=== PATIENT | male | born 1960 | race Hispanic/Latino ===

== ENCOUNTER 2024-04-20 09:04 | Inpatient (IN) | payer SELFPAY ==
[2024-04-20] VITALS (50 sets, daily range): BP systolic 115–166; BP diastolic 67–119; PULSE 81–135; RESP 8–46; TEMP 98.1–98.7; O2SAT 94–96
[~2024-04-20] VITALS: Ht 177.8 cm; Wt 92.1 kg
[2024-04-20] MEDS: HEParin 5,000 UNIT VIAL IV ONE ×2 (09:15→18:54)
[2024-04-20] MEDS ORDERED: IOHEXOL-350 75 ML VIAL IV ONE (09:17)
[2024-04-20] MEDS ORDERED: LIDOCAINE HCL 400MG/20ML VIAL ONE (09:17)
[2024-04-20] MEDS ORDERED: HEParin-NS 1,000 UNIT/500 ML 1,000 ML IV ONE (09:18)
[2024-04-20] MEDS ORDERED: NITROGLYCERIN 50MG VIAL ONE (09:18)
[2024-04-20] MEDS: TICAGrelor 90 MG TABLET PO ONE (09:20)
--- NOTE | 2024-04-20 09:21 | ERN ---
ED Note History of Present Illness Stated Complaint: CP Chief Complaint: Chest Pain Time Seen by MD: 09:10 Dictation: 64-year-old male with a history of HTN presents to the ED for evaluation of worsening chest pain onset 4 hours ago. Patient denies any shortness a breath o r other associated symptoms at this time. No cardiac history. Allergies: Coded Allergies: No Known Drug Allergies (Unverified Allergy, Unknown, 04/20/24) Past Medical History Past Medical History: Hypertension Surgical History: None Review of System Dictation Constitutional: Negative for fever,chills, and weight loss Eyes: Negative for injury, pain,redness, and discharge ENT: Negative for injury,pain or swelling Cardiovascular: Positive for chest pain negative for palpitations, and edema Respiratory: Negative for shortness of breath, cough, and wheezing, Abdomen/GI: Negative for abdominal pain, nausea, vomiting, diarrhea, and constipation Back: Negative for injury and pain : Negative for injury, bleeding and discharge MS/Extremity: Negative for injury and deformity Skin: Negative for rash, and discoloration Neuro: Negative for headache, weakness, numbness, tingling, and seizure Psych: Negative for suicide ideation, homicidal ideation, and hallucinations Initial Vital Sign VS Vital Signs Date Time Temp Pulse Resp B/P (MAP) Pulse Ox O2 Delivery O2 Flow Rate FiO2 04/20/24 09:05 97.9 113 20 198/134 98 0 Physical Exam Dictation General: awake, alert, patient is uncomfortable Head/Face: Normocephalic, atraumatic Eyes: PERRL, EOMI, vision at baseline ENT: oral cavity clear, TMs clear, no signs of infection Neck: Trachea midline, supple, no nuchal rigidity Cardiovascular: Tachycardia, No MRGs, no JVD Respiratory: CTAB, no respiratory distress, No rales or wheezes Abdomen: Soft, non-tender, non-distended, normal bowel sounds, no guarding or rebound. Skin: Warm, dry, normal turgor, no rash MS/Extremity: Pulses equal, no cyanosis, neurovascular intact, FROM Neuro: COAx4, GCS 15, strength 5/5, CN 2-12 intact, normal cerebellar exam, normal gait, Psych: Normal behavior, mood, and affect normal Results (Laboratory/Radiology) Laboratory/Radiology Laboratory Tests Test 04/20/24 09:17 White Blood Count 8.9 K/uL (4.8-10.8) Red Blood Count 5.28 MIL/uL (4.50-6.20) Hemoglobin 17.1 g/dL (14.0-18.0) Hematocrit 49.3 % (42-54) Mean Corpuscular Volume 93.4 fL (79-99) Mean Corpuscular Hemoglobin 32.4 pg (27.0-33.0) Mean Corpuscular Hemoglobin Concent 34.7 g/dL (32.0-36.0) Red Cell Distribution Width 12.9 % (11.0-15.5) Platelet Count 315 K/uL (130-400) Mean Platelet Volume 10.2 fL (7.5-10.5) Immature Granulocyte % (Auto) 0.8 % (0-1) Neutrophils (%) (Auto) 57.2 % (40.0-77.0) Lymphocytes (%) (Auto) 27.4 % (21.0-51.0) Monocytes (%) (Auto) 12.8 % (3.0-13.0) Eosinophils (%) (Auto) 1.6 % (0.0-8.0) Basophils (%) (Auto) 0.2 % (0.0-5.0) Neutrophils # (Auto) 5.1 K/uL (1.8-7.7) Lymphocytes # (Auto) 2.4 K/uL (1.0-4.8) Monocytes # (Auto) 1.1 K/uL (0.1-1.0) H Eosinophils # (Auto) 0.14 K/uL (0.00-0.70) Basophils # (Auto) 0.02 K/uL (0.00-0.20) Absolute Immature Granulocyte (auto 0.07 K/uL (0-1) Nucleated Red Blood Cells 0.0 % (0.0-0.19) Sodium Level 139 mmol/L (136-145) Potassium Level 3.9 mmol/L (3.5-5.1) Chloride Level 101 mmol/L (101-111) Carbon Dioxide Level 29 mmol/L (21-32) Blood Urea Nitrogen 21 mg/dL (7-18) H Creatinine 1.7 mg/dL (0.5-1.3) H Glomerular Filtration Rate Calc 45 mL/min (>90) Random Glucose 159 mg/dL (70-105) H Total Calcium 9.3 mg/dL (8.5-10.1) Total Creatine Kinase 153 U/L (21-232) Troponin I 0.07 ng/mL (0.00-0.05) H B-Type Natriuretic Peptide 61 pg/mL (0-100) Labs Reviewed?: Yes EKG Comment: EKG 04/20/2024 time 9:00 a.m. ventricular rate 106, QRS D 97, QT 320. Atrial fibrillation, anterolateral infarct, acute, ST elevation, consider inferior injury. Abnormal EKG. Anterior lateral STEMI ED Course ED Course Orders Procedure Category Date Status Time Vital Signs Per CPOE 04/20/24 Transmitted Routine 09:10 B-Type Natriuretic LAB 04/20/24 Complete Peptide 09:10 Chest 1vw RAD 04/20/24 Logged 09:10 12 Lead Ekg Tracing- EKG 04/20/24 Complete Technical 09:10 Oxygen By Nc/Pulse Ox CPOE 04/20/24 Transmitted 09:10 Maintain Iv CPOE 04/20/24 Transmitted 09:10 Iv Insertion CPOE 04/20/24 Transmitted 09:10 Cardiac Monitoring CPOE 04/20/24 Transmitted 09:10 Pulse Oximetry With CPOE 04/20/24 Transmitted Vs And Prn 09:10 Cbc With Differential LAB 04/20/24 Complete 09:10 Activity: Br W/Brp CPOE 04/20/24 Transmitted With Assist 09:10 Creatine Kinase, Total LAB 04/20/24 Complete 09:10 Urinalysis Profile LAB 04/20/24 Logged 09:10 Troponin Poc Order LAB 04/20/24 Complete Only 09:10 Bedside Troponin-I LAB.ER 04/20/24 In Process (Poc) 09:10 Basic Metabolic Panel LAB 04/20/24 Complete 09:10 Heparin 5,000 Unit PHA 04/20/24 Complete Vial (Heparin 5,000 U 09:14 Heparin 25,000 PHA 04/20/24 Complete Units/250ml D5w 09:14 Aspirin 325mg Tab PHA 04/20/24 Complete (Aspirin 325mg Tab) 09:30 Lidocaine Hcl PHA 04/20/24 Complete 400mg/20ml (Lidocaine 09:17 Iohexol (Omnipaque) PHA 04/20/24 Complete 09:17 Heparin-Ns 1,000 PHA 04/20/24 Complete Unit/500 Ml 09:18 Nitroglycerin 50mg PHA 04/20/24 Complete Vial (Tridil 50mg/10m 09:18 Ticagrelor (Brilinta) PHA 04/20/24 Complete 09:30 Ticagrelor (Brilinta) PHA 04/20/24 Complete 09:20 Butter Liquefier Procedure CATH 04/20/24 In Process Request 09:25 Heparin 5,000 Unit PHA 04/20/24 Complete Vial (Heparin 5,000 U 09:30 Heparin 25,000 PHA 04/20/24 In Process Units/250ml D5w 09:30 Ticagrelor (Brilinta) PHA 04/20/24 Complete 09:30 Heparin 10,000 PHA 04/20/24 Complete Unit/10ml (Heparin 09:26 Aspirin 325mg Ec Tab PHA 04/20/24 Complete (Aspirin 325mg Ec T 09:26 Verapamil Hcl PHA 04/20/24 Complete (Calan/Isoptin) 09:29 Fentanyl Citrate Pf PHA 04/20/24 Complete 0.05 Mg/Ml (Fentanyl 09:31 Midazolam Hcl (Versed) PHA 04/20/24 Complete 09:31 Metoprolol Tartrate PHA 04/20/24 Complete (Lopressor) 09:38 Eptifibatide PHA 04/20/24 Complete (Integrilin) 09:52 Metoprolol Tartrate PHA 04/20/24 Complete (Lopressor) 09:53 Eptifibatide PHA 04/20/24 Complete (Integrilin) 09:58 Initiate EVELYNE 04/20/24 In Process Hyperglycemia Protoco 10:08 Insulin Regular, PHA 04/20/24 In Process Human 3ml (Humulin R 11:30 Initiate Hypoglycemia EVELYNE 04/20/24 In Process Protocol 10:08 Dextrose 50%-Water PHA 04/20/24 In Process (D50w) 10:30 Glucagon 1mg Kit PHA 04/20/24 In Process (Glucagon 1mg Kit) 10:30 Magnesium 2gm Premix PHA 04/20/24 In Process 50ml (Magnesium 2gm 10:30 Ammonia LAB 04/21/24 Verified 04:00 B-Type Natriuretic LAB 04/21/24 Verified Peptide 04:00 Cbc With Differential LAB 04/21/24 Verified 04:00 Comprehensive LAB 04/21/24 Verified Metabolic Panel 04:00 Creatine Kinase, Total LAB 04/21/24 Verified 04:00 D-Dimer LAB 04/20/24 In Process 10:08 Hemoglobin A1c LAB 04/21/24 Verified 04:00 Hepatic Function Panel LAB 04/21/24 Verified 04:00 Influenza Type A & B, LAB 04/20/24 Logged Rapid 10:08 Lactic Acid LAB 04/21/24 Verified 04:00 Magnesium LAB 04/21/24 Verified 02:00 Procalcitonin LAB 04/21/24 Verified 04:00 Troponin I High LAB 04/21/24 Verified Sensitivity 04:00 Heparin-Ns 1,000 PHA 04/20/24 Complete Unit/500 Ml 10:08 Vital Signs(Adult CPOE 04/20/24 Transmitted Hospitalist) 10:09 Daily Weights CPOE 04/20/24 Transmitted 10:09 I&O Q Shift CPOE 04/20/24 Transmitted 10:09 Fever: Blood Cx X 2 CPOE 04/20/24 Transmitted 10:09 Diphenhydramine Hcl PHA 04/20/24 In Process (Benadryl Cap) 10:30 Acetaminophen 325 Tab PHA 04/20/24 In Process (Tylenol 325mg Tab 10:30 Acetaminophen 325 Tab PHA 04/20/24 In Process (Tylenol 325mg Tab 10:30 Ondansetron 4mg Inj PHA 04/20/24 In Process (Zofran 4mg Inj) 10:30 Zolpidem Tartrate 5 PHA 04/20/24 In Process Mg Tab (Ambien) 10:30 Mag/Alum/Simeth 30ml PHA 04/20/24 In Process (Maalox Plus 30ml) 10:30 Lactulose 20 Gm/30 Ml PHA 04/20/24 In Process Udcup (Constulose 10:30 Nitroglycerin 0.4mg PHA 04/20/24 In Process Sl Tab (Nitrostat) 10:30 Guaifenesin-Dm PHA 04/20/24 In Process 200/20mg 10ml 10:30 Ipratropium 0.5 PHA 04/20/24 In Process Mg/2.5 Ml Inh 12:00 Famotidine 20mg Vial PHA 04/20/24 Complete (Pepcid 20mg Vial) 10:30 Albuterol 0.083% PHA 04/20/24 In Process 2.5mg/3ml (Proventil 10:30 Nurse To Enter Home CPOE 04/20/24 Transmitted Medication 10:09 Vital Signs(Adult CPOE 04/20/24 Transmitted Hospitalist) 10:09 Nurse To Enter Home CPOE 04/20/24 Transmitted Medication 10:09 Admit Orders ADM 04/20/24 Transmitted 10:09 Eptifibatide PHA 04/20/24 Complete 75mg/100ml Bottle 10:16 Vital Signs(Adult CPOE 04/20/24 Transmitted Hospitalist) 10:14 Nurse To Enter Home CPOE 04/20/24 Transmitted Medication 10:14 Activity: Br W/Brp CPOE 04/20/24 Transmitted With Assist 10:14 Urinalysis LAB 04/20/24 Logged W/Microscopic 10:14 Nitroglycerin PHA 04/20/24 Complete 50mg/D5w 250ml 10:25 Metoprolol Tartrate PHA 04/20/24 Complete (Lopressor) 10:28 Butter Liquefier Vital Signs CPOE 04/20/24 Transmitted 11:00 Intake/Output Butter Liquefier CPOE 04/20/24 Transmitted 11:00 Physician CPOE 04/20/24 Transmitted Notification Cathlab 11:00 Integrilin 75mg/100mls PHA 04/20/24 Transmitted 11:00 Ns 1000mls PHA 04/20/24 Transmitted 11:00 Heart Healthy Diet DIET 04/20/24 Transmitted Lunch Carvedilol 6.25mg Tab PHA 04/20/24 Transmitted (Coreg 6.25mg) 21:00 Aspirin 81mg Chew Tab PHA 04/21/24 Transmitted (Aspirin 81mg Chew 09:00 Metoprolol Tartrate PHA 04/20/24 Transmitted (Lopressor) 11:00 Ticagrelor (Brilinta) PHA 04/20/24 Transmitted 21:00 Atorvastatin 40mg PHA 04/20/24 Transmitted (Lipitor 40mg) 21:00 Echo 2-D Complete ECHO 04/20/24 Logged 11:00 Nitroglycerin PHA 04/20/24 Transmitted 50mg/D5w 250ml 11:00 Radial Band CPOE 04/20/24 Transmitted Remvl-Intervention 11:00 Vital Signs Date Time Temp Pulse Resp B/P (MAP) Pulse Ox O2 Delivery O2 Flow Rate FiO2 04/20/24 09:05 97.9 113 20 198/134 98 0 HEART Score Response (Comments) Value History: Low suspicion (0) 0 EKG: Significant ST depression 2 Age: 45-65yrs (+1) 1 Risk Factors: 1-2 risk factors (+1) 1 Initial Troponin: Normal limit (0) 0 HEART Score Risk: Mod Risk for MACE (4-6) Total 4 Medical Decision Making MDM MDM: Differential diagnosis:WA, STEMI, ACS 0914- Dr. Bruno, will take patient to the Cathlab 0925- Hospitalist consult, accepts patient for admission Rationale: Tests considered and ordered secondary to shared decision making include: labs, ECG and radiology Risk of complication and/or morbidity or mortality of patient management: None Medications-Per medication reconciliation Need for hospitalization: Patient does meet criteria for hospitalization. Need for emergency major/minor surgery: Yes There are no social concerns with this patient. I independently interpreted the test that were performed, results were reviewed by me and considered findings on radiology if ordered. Medical management and examination interpretation discussions were had by me with other qualified healthcare professionals as indicated for the patient's care. Critical Care Note Critical Time: other (Total critical care time was 33 minutes. Excluding time for procedures. Management of critically ill patient with concern for acute decompensation. Management included interpretation of laboratory values and imaging, hemodynamics, time for consultation with consultants and admitting physician.) DX & DISP Disposition: Inpatient Decision to Admit Date: Apr 20, 2024 Decision to Admit Time: 09:24 Departure Impression: Primary Impression: STEMI (ST elevation myocardial infarction) Additional Impressions: Acute coronary syndrome, Anterior lateral STEMI Condition: Stable Referrals: CARISSA LIVE (PCP) PHANI CARVER MD Apr 20, 2024 09:21
--- NOTE | 2024-04-20 09:21 | NUR ---
PT TRANPORTED TO SIGNAL TESTER AT THIS TIME ACCOMPANIED BY CATH TEAM
--- NOTE | 2024-04-20 09:23 | NUR ---
TO CARE MANAGEMENT ASSOCIATE AT THIS TIME
[2024-04-20] MEDS ORDERED: ASPIRIN 325MG EC TAB PO ONE (09:26)
[2024-04-20] MEDS ORDERED: HEParin 10,000 UNIT/10ML (1,000 UNIT/ML) VIAL ONE (09:26)
[2024-04-20] MEDS: HEParin 25,000 UNITS/250ML D5W 250 ML IV ONE (09:27)
[2024-04-20] MEDS: HEParin 5,000 UNIT VIAL ONE (09:27)
[2024-04-20] MEDS: TICAGrelor 90 MG TABLET ONE (09:27)
--- NOTE | 2024-04-20 09:27 | NUR ---
PER SALES ROUTE DRIVER NURSE, NOT TO START HEPARIN DRIP PATIENT WAS ALREADY BEING TRANSFERED TO SALES ROUTE DRIVER. TO BE STARTED BY SALES ROUTE DRIVER TEAM.
[2024-04-20] MEDS ORDERED: VERAPAMIL HCL 2.5 MG/ML VIAL ONE (09:29)
[2024-04-20] MEDS ORDERED: TICAGrelor 90 MG TABLET PO SCH (09:30)
[2024-04-20] MEDS: ASPIRIN 325MG TAB PO ONE (09:30)
[2024-04-20] MEDS ORDERED: FENTanyl CITRate PF 50 MCG/1 ML 2ML VIAL ONE (09:31)
[2024-04-20] MEDS ORDERED: MIDAZOLAM HCL 1 MG/ML 2ML VIAL ONE (09:31)
[2024-04-20 09:33] LABS: BASOPHILS # (AUTO) 0.02 K/uL (0.00-0.20); BASOPHILS % (AUTO) 0.2 % (0.0-5.0); EOSINOPHILS # (AUTO) 0.14 K/uL (0.00-0.70); EOSINOPHILS % (AUTO) 1.6 % (0.0-8.0); HEMATOCRIT 49.3 % (42-54); IMMATURE GRANULOCYTE ABSOLUTE 0.07 K/uL (0-1); LYMPHOCYTES # (AUTO) 2.4 K/uL (1.0-4.8); LYMPHOCYTES % (AUTO) 27.4 % (21.0-51.0); MEAN CORPUSCULAR HEMOGLOBIN 32.4 pg (27.0-33.0); MEAN CORPUSCULAR HGB CONC 34.7 g/dL (32.0-36.0); MEAN CORPUSCULAR VOLUME 93.4 fL (79-99); MONOCYTES # (AUTO) 1.1 K/uL (0.1-1.0); MONOCYTES % (AUTO) 12.8 % (3.0-13.0); NEUTROPHILS # (AUTO) 5.1 K/uL (1.8-7.7); NEUTROPHILS % (AUTO) 57.2 % (40.0-77.0); PLATELET COUNT (AUTO) 315 K/uL (130-400); RED BLOOD CELL COUNT(AUTO) 5.28 MIL/uL (4.50-6.20); RED CELL DISTRIBUTION WIDTH 12.9 % (11.0-15.5); WHITE BLOOD COUNT (AUTO) 8.9 K/uL (4.8-10.8)
[2024-04-20] MEDS ORDERED: metoPROLOL tartRATE 1 MG/ML 5ML VIAL IV ONE ×3 (09:38→10:28)
[2024-04-20 09:45] LABS: CREATININE 1.7 mg/dL (0.5-1.3); POTASSIUM 3.9 mmol/L (3.5-5.1)
[2024-04-20] MEDS ORDERED: EPTIFIBATIDE 2 MG/ML 10 ML VIAL IVP ONE ×2 (09:52→09:58)
[2024-04-20 09:54] LABS: B-TYPE NATRIURETIC PEPTIDE 61 pg/mL (0-100)
--- NOTE | 2024-04-20 10:02 | EKG ---
[facility] Test Date: 2024-04-20 Test Time: 09:00:08 Pat Name: BERTHA BONILLA Department: [facility] Room: 217 Gender: M Scrub Technician: [id number] : 1960 Requested By: PHANI CARVER Order Number: [id number] Reading MD: Sheree Bruno Measurements Intervals [place] Rate: 106 P: 0 [place]: 0 QRS: 20 QRSD: 97 T: 42 QT: 320 QTc: 426 Interpretive Statements Atrial fibrillation with rapid ventricular response Anterolateral infarct, acute (LAD) No previous ECG available for comparison Electronically Signed On 04-20-2024 14:36:19 DIRECTOR SPEECH by Sheree Bruno Please click the below link to view image of tracing.
[2024-04-20] MEDS ORDERED: HEParin-NS 1,000 UNIT/500 ML 500 ML IV ONE (10:08)
[2024-04-20] MEDS ORDERED: EPTIFIBATIDE 75MG/100ML BOTTLE 100 ML IV ONE (10:16)
[2024-04-20] MEDS ORDERED: NITROGLYCERIN 50MG/D5W 250ML 1 BOT ONE (10:25)
[2024-04-20] MEDS ORDERED: FAMOTIDINE 20MG VIAL IV PRN (10:30)
[2024-04-20] MEDS ORDERED: acetaMINOPHEN 325 MG TAB PO PRN (10:30)
[2024-04-20] MEDS ORDERED: ALBUTEROL 0.083% 2.5 MG/3 ML INH IH PRN (10:30)
[2024-04-20] MEDS ORDERED: DiphenhydrAMINE HCL 25 MG CAPSULE PO PRN (10:30)
[2024-04-20] MEDS ORDERED: DEXTROSE 50%-WATER 50 ML DISP.SYRIN IV PRN (10:30)
[2024-04-20] MEDS ORDERED: GLUCAGON 1MG KIT 1 MG ML IM PRN (10:30)
[2024-04-20] MEDS: 0.9%NACL 1000ML 1,000 ML IV SCH (11:00)
--- NOTE | 2024-04-20 11:09 | CONS ---
[facility] CARDIOLOGY CONSULTATION NOTE Date Patient Seen: Apr 20, 2024 Time of Visit: 11:05 Requesting Physician: [ ] Reason for Consultation: [ ] History of Present Illness: Patient is a 64-year-old male past medical history of hypertension who presented with new onset substernal chest pain onset at 6:00 a.m. this morning rated 10 on 10 intensity. In the emergency department, he was found to have anterolateral ST elevations with underlying atrial fibrillation with rapid ventricular response code STEMI was called. Patient reports he has not seen a healthcare provider in many years. Past Medical History: Hypertension Dyslipidemia Past Surgical History: Denies Family History: Denies Social History: Independent with ambulation Review of Systems: Reports substernal chest pain. Physical Examination: GENERAL: [No acute distress.] HEAD: [Normal with no signs of head trauma.] EYES: [PERRLA, EOMI, conjunctiva and sclera normal.] LUNGS: [Clear breath sounds bilaterally. No wheezes, or rhonchi.] HEART: [Normal rate and rhythm. Normal S1 and S2 without murmurs, gallop or rub.] VASC: [Peripheral pulses +2 bilaterally.] ABD: [soft, nontender] EXT: [No clubbing, cyanosis or edema.] SKIN: [warm, dry.] NEURO: [Awake, alert, and oriented x3. No focal sensory or strength deficits noted.] Vital Signs (last 8hr) Date Time Temp Pulse Resp B/P (MAP) Pulse Ox O2 Delivery O2 Flow Rate FiO2 04/20/24 09:05 97.9 113 20 198/134 98 0 Laboratory: [ ] Hematology Labs: Test 04/20/24 09:17 Range/Units White Blood Count 8.9 4.8-10.8 K/uL Red Blood Count 5.28 4.50-6.20 MIL/uL Hemoglobin 17.1 14.0-18.0 g/dL Hematocrit 49.3 42-54 % Mean Corpuscular Volume 93.4 79-99 fL Mean Corpuscular Hemoglobin 32.4 27.0-33.0 pg Mean Corpuscular Hemoglobin Concent 34.7 32.0-36.0 g/dL Red Cell Distribution Width 12.9 11.0-15.5 % Platelet Count 315 130-400 K/uL Mean Platelet Volume 10.2 7.5-10.5 fL Immature Granulocyte % (Auto) 0.8 0-1 % Neutrophils (%) (Auto) 57.2 40.0-77.0 % Lymphocytes (%) (Auto) 27.4 21.0-51.0 % Monocytes (%) (Auto) 12.8 3.0-13.0 % Eosinophils (%) (Auto) 1.6 0.0-8.0 % Basophils (%) (Auto) 0.2 0.0-5.0 % Neutrophils # (Auto) 5.1 1.8-7.7 K/uL Lymphocytes # (Auto) 2.4 1.0-4.8 K/uL Monocytes # (Auto) 1.1 H 0.1-1.0 K/uL Eosinophils # (Auto) 0.14 0.00-0.70 K/uL Basophils # (Auto) 0.02 0.00-0.20 K/uL Absolute Immature Granulocyte (auto 0.07 0-1 K/uL Nucleated Red Blood Cells 0.0 0.0-0.19 % Chemistry Labs: Test 04/20/24 09:17 Range/Units Sodium Level 139 136-145 mmol/L Potassium Level 3.9 3.5-5.1 mmol/L Chloride Level 101 101-111 mmol/L Carbon Dioxide Level 29 21-32 mmol/L Blood Urea Nitrogen 21 H 7-18 mg/dL Creatinine 1.7 H 0.5-1.3 mg/dL Glomerular Filtration Rate Calc 45 >90 mL/min Random Glucose 159 H 70-105 mg/dL Total Calcium 9.3 8.5-10.1 mg/dL Total Creatine Kinase 153 21-232 U/L Troponin I 0.07 H 0.00-0.05 ng/mL B-Type Natriuretic Peptide 61 0-100 pg/mL Diagnostics / Radiology: Current Medications Medications Dose Ordered Sig/Shala Start Time Stop Time Status Last Admin Heparin Sodium/ Dextrose 250 ml @ 0 mls/hr PROTOCOL 04/20/24 09:30 05/20/24 09:29 Insulin Human Regular INSULIN SLIDING SCAL... ACHS 04/20/24 11:30 05/20/24 11:29 Dextrose 50 ml AD PRN 04/20/24 10:30 05/20/24 10:29 Glucagon 1 mg AD PRN 04/20/24 10:30 05/20/24 10:29 Magnesium Sulfate 50 ml @ 0 mls/hr PROTOCOL PRN 04/20/24 10:30 05/20/24 10:29 Diphenhydramine HCl 25 mg Q4H PRN 04/20/24 10:30 05/20/24 10:29 Acetaminophen 650 mg Q6H PRN 04/20/24 10:30 05/20/24 10:29 Acetaminophen 650 mg Q4H PRN 04/20/24 10:30 05/20/24 10:29 Ondansetron HCl 4 mg Q6H PRN 04/20/24 10:30 05/20/24 10:29 Zolpidem Tartrate 5 mg HS PRN 04/20/24 10:30 05/20/24 10:29 Al Hydroxide/Mg Hydroxide 30 ml Q6H PRN 04/20/24 10:30 05/20/24 10:29 Lactulose 20 gm BID PRN 04/20/24 10:30 05/20/24 10:29 Nitroglycerin 0.4 mg PROTOCOL PRN 04/20/24 10:30 05/20/24 10:29 Guaifenesin/ Dextromethorphan 10 ml Q4H PRN 04/20/24 10:30 05/20/24 10:29 Ipratropium [place] 0.5 mg [id number] 04/20/24 12:00 05/20/24 11:59 Albuterol Sulfate 2.5 mg [id number] PRN 04/20/24 10:30 05/20/24 10:29 Assessment: Anterior lateral ST-elevation [place] New onset atrial fibrillation with rapid ventricular response Hypertension Plan: Patient received low-dose aspirin, ticagrelor and heparin. Discussed with the patient our recommendation is to proceed with emergent left heart catheterization, coronary angiography and possible percutaneous intervention. HOMA CALIX DO Apr 20, 2024 11:08
--- NOTE | 2024-04-20 11:09 | PRN ---
Cath Procedure Report CATH PROCEDURE REPORT CARDIAC CATHETERIZATION REPORT Date of Service: Apr 20, 2024 PROCEDURE: Left heart catheterization with selective right and left coronary angiography Intravascular ultrasound of the left anterior descending artery and left main coronary artery Percutaneous transluminal coronary angioplasty of the proximal to mid left anterior descending artery with placement of 4.5mm x 18 mm What Cheer [place] drug eluting stent post dilated to 4.6mm by NC. INDICATION: Anterolateral ST elevation CO HYDROLOGIST: Homa Bruno DO DESCRIPTION OF PROCEDURE: Informed consent obtained an emergent fashion. Right radial artery was accessed on 1st attempt after 1% lidocaine was used of the subcutaneous tissue, with placement of hydrophilic six [place]ian short sheath with a vasovagal attack cocktail of 2.5 mg of verapamil and 200 mcg of nitroglycerin. Over an 035 J- wire, a six [place] JR4 catheter was used to cross the aortic valve for LVEDP m easurement and pullback across the aortic valve. JR4 catheter was used to selectively engage the right coronary artery multiple angiographic views were taken. This was then exchanged over the wire for a six [place] JL 3.5 guide catheter which was used to selectively engage the left coronary artery and multiple angiographic views were taken. Then, we proceeded with intervention. At this point, patient had already received 5000 units of heparin in the emergency department an additional 2000 units was administered for patient to receive a total of 70 units/kg of heparin. ACT was monitored routinely throughout the procedure confirming therapeutic ACT greater than 250. In 014 x 300 cm run-through wire was advanced across the 100% proximal left anterior descending artery thrombotic occlusion, predilatation was performed with a 3.0 x 15 mm Euphora compliant balloon. Intravascular ultrasound was performed of the left anterior descending artery and left main. A 5.0x15 mm noncompliant balloon Euphora was used to pre dilate the lesion to 4.6 mm. A 4.5 x 18 mm Rafi [place] drug-eluting stent was placed at the proximal to mid left anterior descending artery, post dilated to 4.6 mm. Intravascular ultrasound was performed confirming adequate stent expansion. All catheters and wires were then removed and hemostasis achieved at the right radial artery he was off aspirin. Patient tolerated procedure well without immediate complications. Double bolus Integrilin and drip was started as well as nitroglycerin drip due to refractory hypertension. Patient also received three intravenous pushes of 5 mg Lopressor due to tachycardia. FINDINGS: Left main: Angiographically free of disease, trifurcates into LAD ramus intermedius and left circumflex Left anterior descending artery: 100% thrombotic occlusion at the proximal left anterior descending artery. This lesion was stented, restoring AXEL three flow distally. The 1st diagonal is jailed and angiographically free of disease. S econd diagonal displays an ostial stenosis of 90-95%. Mid LAD with mild diffuse disease and mild myocardial bridging. Third diagonal displayed AXEL one flow after pre dilatation of the left anterior descending artery stenosis, improved post stenting and post Integrilin use. The LAD then extends to wraps around the apex and supply proximal 1/3 of the inferior myocardium. Ramus intermedius: Large caliber, proximal focal 10-20% stenosis angiographically free of disease. Left circumflex: Proximal 20% stenosis. One branches are angiographically free of disease. Right coronary artery: Right dominant coronary system. Proximal 30% stenosis, mid 30-40% stenosis. The RPDA is angiographically free of disease. SUMMARY: 100% thrombotic occlusion of the proximal left anterior descending artery status post stenting under IVUS guidance. HOMA BRUNO DO Apr 20, 2024 11:09
[2024-04-20] MEDS: INSULIN humuLIN R 100 UNIT/ML 3ML SQ SCH (11:30)
--- NOTE | 2024-04-20 12:49 | HP ---
[facility] HISTORY AND PHYSICAL Date of Service: Apr 20, 2024 Time of Service: 12:32 PCP:non Admitting: Zita Allergies: No Allergy Information Available, No Known Drug Allergies HISTORY OF PRESENT ILLNESS: [ Patient is 64 years old male with a past medical history of hypertension, hyperlipidemia, who came to emergency department with substernal chest pain starting 6:00 a.m. this morning rated 10/10 intensity. At 1st patient felt like he has a gas problem and he took the [place] but at 7:30 a.m. his left arm started to hurt and became very called to touch and felt numb. Patient knew that there was something wrong so he asked the to drive him to emergency department to [facility]. Patient denies any shortness of breaths, nausea, vomiting or any other discomfort other than stated above. In emergency department patient was found to have anterior lateral ST-elevation with underlying AFib with rapid ventricular response code STEMI was called. Patient was taken to the laborer livestock with and stent was placed to proximal LAD. At this moment patient was evaluated in ICU by nurse practitioner and physician during rounding. At this moment patient continues to be on aspirin atorvastatin Brilinta carvedilol metoprolol drip, normal saline at 100 mL/hour and heparin drip per protocol as requested by log raft worker. WBC 8.9 hemoglobin 17.1 hematocrit 49.3 platelets 315. Sodium 139 potassium 3.9 chloride 101 CO2 29 BUN 21 creatinine 1.7 GFR 45 random glucose 159 calcium 9.3 CK 153 troponin positive x1 BNP 61. Patient is pending 2D echo and chest x- ray. Patient will be admitted under hospitalist care. ICU, managing supervisor and log raft worker consulted pending further evaluation REVIEW OF SYSTEMS CONSTITUTIONAL: Denies fevers, chills, or night sweats. No unintentional weight loss reported. NEUROLOGICAL: Denies headache, amaurosis fugax, motor weakness, sensory deficit, vertigo/spinning sensation, gait abnormalities, or tremors. ENT: No hearing loss, otalgia, otorrhea, rhinitis, rhinorrhea, hoarseness, or sore throat. CARDIOVASCULAR: Denies any exertional angina, dyspnea on exertion, orthopnea, paroxysmal nocturnal dyspnea, palpitations, life-threatening arrhythmias, claudication. Complains of chest pain and left hand pain with numbness PULMONARY: Denies any shortness of breath, cough, phlegm/sputum, hemoptysis, pleuritic chest pain. SLEEP: Denies morning headaches, daytime somnolence or napping. Denies difficulty falling asleep, staying asleep, waking from sleep. Denies knowledge of snoring. GASTROINTESTINAL: Denies any type of dysphagia to either liquids or solids. Denies nausea, vomiting, pyrosis, early satiety, abdominal pain, diarrhea, constipation, or changes in stool consistency or caliber. Denies coffee-ground emesis, hematemesis, hematochezia, or melanotic stools. GENITOURINARY: Denies frequency, urgency, nocturia, hematuria or incontinence (Storage/Irritative symptoms.) Low urinary stream, straining to void, urinary intermittency or hesitancy, splitting of the voiding stream, terminal dribbling. ENDOCRINOLOGIC: Denies polyuria, polydipsia, polyphagia or heat/cold intolerances. HEMATOLOGIC: Denies thrombophilia/previous clots, or coagulopathy/bleeding disorders. ONCOLOGIC: Denies personal history of malignancy. DERMATOLOGIC: Denies rashes or pruritus. PSYCHIATRIC: Denies any suicidal or homicidal ideation. Denies hallucinations. PAST MEDICAL HISTORY: [Hypertension, hyperlipidemia ] PAST SURGICAL HISTORY: [None ] PAST SOCIAL HISTORY: [ Patient denies smoking. Patient drinks occasionally gin or Tequila. Patient denies any drug illicit] FAMILY HISTORY: [ Patient lives at home with the family members. Prior admission patient indep endent not require any assistive devices for ambulation ] Coded Allergies: No Known Drug Allergies (Unverified Allergy, Unknown, 04/20/24) PHYSICAL EXAM GENERAL APPEARANCE: The patient is awake, alert, and oriented, in no acute cardiopulmonary distress. NEUROLOGICAL: Cranial nerves II-XII grossly intact. Motor is 5/5 in bilateral upper and lower extremities proximal to distal. No sensory deficits. HEENT: Face is symmetric. Pupils are equal and reactive. Extraocular movements are intact. NECK: Supple. No JVD. No thyromegaly. No submental, submandibular, pre- /postauricular, occipital or supraclavicular lymphadenopathy. CHEST: Normal chest expansion. No Telemetry. LUNGS: Absence of any rales, rhonchi or any wheezing. CARDIOVASCULAR: Regular. S1 and S2 normal. No appreciable rubs, murmurs or gallops. ABDOMEN: Soft, nontender, and nondistended. There is no rebound, voluntary guarding, or rigidity. : Deferred. No Hart. EXTREMITIES: Non-edematous and not cyanotic. No clubbing. Good capillary refill. SKIN: No skin breakdown. Vital Sign (Last 24 Hours) 04/20/24 09:05 Temp 97.9 Pulse 113 Resp 20 B/P (MAP) 198/134 Pulse Ox 98 O2 Flow Rate 0 LABS: Laboratory: Test 04/20/24 12:10 04/20/24 09:17 Range/Units Whole Blood Glucose 138 H 70-110 MG/DL White Blood Count 8.9 4.8-10.8 K/uL Red Blood Count 5.28 4.50-6.20 MIL/uL Hemoglobin 17.1 14.0-18.0 g/dL Hematocrit 49.3 42-54 % Mean Corpuscular Volume 93.4 79-99 fL Mean Corpuscular Hemoglobin 32.4 27.0-33.0 pg Mean Corpuscular Hemoglobin Concent 34.7 32.0-36.0 g/dL Red Cell Distribution Width 12.9 11.0-15.5 % Platelet Count 315 130-400 K/uL Mean Platelet Volume 10.2 7.5-10.5 fL Immature Granulocyte % (Auto) 0.8 0-1 % Neutrophils (%) (Auto) 57.2 40.0-77.0 % Lymphocytes (%) (Auto) 27.4 21.0-51.0 % Monocytes (%) (Auto) 12.8 3.0-13.0 % Eosinophils (%) (Auto) 1.6 0.0-8.0 % Basophils (%) (Auto) 0.2 0.0-5.0 % Neutrophils # (Auto) 5.1 1.8-7.7 K/uL Lymphocytes # (Auto) 2.4 1.0-4.8 K/uL Monocytes # (Auto) 1.1 H 0.1-1.0 K/uL Eosinophils # (Auto) 0.14 0.00-0.70 K/uL Basophils # (Auto) 0.02 0.00-0.20 K/uL Absolute Immature Granulocyte (auto 0.07 0-1 K/uL Nucleated Red Blood Cells 0.0 0.0-0.19 % Sodium Level 139 136-145 mmol/L Potassium Level 3.9 3.5-5.1 mmol/L Chloride Level 101 101-111 mmol/L Carbon Dioxide Level 29 21-32 mmol/L Blood Urea Nitrogen 21 H 7-18 mg/dL Creatinine 1.7 H 0.5-1.3 mg/dL Glomerular Filtration Rate Calc 45 >90 mL/min Random Glucose 159 H 70-105 mg/dL Total Calcium 9.3 8.5-10.1 mg/dL Total Creatine Kinase 153 21-232 U/L Troponin I 0.07 H 0.00-0.05 ng/mL B-Type Natriuretic Peptide 61 0-100 pg/mL Current Medications Medications (Trade) Dose Ordered Sig/Shala Route PRN Reason Start Time Stop Time Status Last Admin Dose Admin Acetaminophen (TYLenol 325MG TAB) 650 mg Q4H PRN PO MILD PAIN (1-3) 04/20/24 10:30 05/20/24 10:29 Acetaminophen (TYLenol 325MG TAB) 650 mg Q6H PRN PO TEMPERATURE GREATER THAN 101.5 04/20/24 10:30 05/20/24 10:29 Al Hydroxide/Mg Hydroxide (MAALox PLUS 30ML) 30 ml Q6H PRN PO INDIGESTION 04/20/24 10:30 05/20/24 10:29 Albuterol Sulfate (Proventil 0.083% 2.5mg/3ml) 2.5 mg [id number] PRN IH RESPIRATORY SYMPTOMS 04/20/24 10:30 05/20/24 10:29 Aspirin (Aspirin 81mg Chew Tab) 81 mg DAILY PO 04/21/24 09:00 05/21/24 08:59 Atorvastatin Calcium (LIPItor 40MG) 40 mg HS PO 04/20/24 21:00 05/20/24 20:59 Carvedilol (Coreg 6.25MG) 6.25 mg BID PO 04/20/24 21:00 05/20/24 20:59 Dextrose (D50w) 50 ml AD PRN IV HYPOGLYCEMIA PROTOCOL 04/20/24 10:30 05/20/24 10:29 Diphenhydramine HCl (BENAdryl CAP) 25 mg Q4H PRN PO MILD ITCHING/RASH 04/20/24 10:30 05/20/24 10:29 Eptifibatide 100 ml @ 0 mls/hr PROTOCOL IV 04/20/24 11:00 04/21/24 04:59 Famotidine (Pepcid 20mg Vial) 20 mg BID PRN IV NAUSEA/VOMITING 04/20/24 10:30 04/20/24 10:19 DC Glucagon (Glucagon 1mg Kit) 1 mg AD PRN IM HYPOGLYCEMIA PROTOCOL 04/20/24 10:30 05/20/24 10:29 Guaifenesin/ Dextromethorphan (RobiTUSSin DM 200/20MG 10ML) 10 ml Q4H PRN PO COUGH 04/20/24 10:30 05/20/24 10:29 Heparin Sodium/ Dextrose 250 ml @ 0 mls/hr PROTOCOL IV 04/20/24 09:30 05/20/24 09:29 Insulin Human Regular (humuLIN R 100 UNIT/ML 3ML) INSULIN SLIDING SCAL... ACHS SQ 04/20/24 11:30 05/20/24 11:29 Ipratropium [place] (AtrovENT UD) 0.5 mg [id number] IH 04/20/24 12:00 05/20/24 11:59 Lactulose (Constulose 20gm/ 30ml Udcup) 20 gm BID PRN PO CONSTIPATION 04/20/24 10:30 05/20/24 10:29 Magnesium Sulfate 50 ml @ 0 mls/hr PROTOCOL PRN IV other 04/20/24 10:30 05/20/24 10:29 Metoprolol Tartrate (loprESSOR) 5 mg Q5M PRN IV Heart rate greater than 110 04/20/24 11:00 Nitroglycerin (Nitrostat) 0.4 mg PROTOCOL PRN SL CHEST PAIN 04/20/24 10:30 05/20/24 10:29 Nitroglycerin/ Dextrose 250 ml @ 0 mls/hr PROTOCOL IV 04/20/24 11:00 05/20/24 10:59 Ondansetron HCl (zoFRAN 4MG INJ) 4 mg Q6H PRN IV NAUSEA/VOMITING 04/20/24 10:30 05/20/24 10:29 Sodium Chloride 1,000 ml @ 100 mls/hr Q10H IV 04/20/24 11:00 04/20/24 16:59 Ticagrelor (BRILinta) 90 mg BID PO 04/20/24 21:00 4/5/25 20:59 Ticagrelor (BRILinta) 180 mg ONCE PO 04/20/24 09:30 04/20/24 09:26 DC Zolpidem Tartrate (AmbIEN) 5 mg HS PRN PO INSOMNIA 04/20/24 10:30 05/20/24 10:29 DIAGNOSTICS / RADIOLOGY: [ ] ASSESSMENT: [ Acute STEMI, code STEMI called in ER POA S/p left heart catheterization 04/20/2024 placement on stent proximal LAD with POA S/p LHC s/p symptomatic severe hypotension requiring cardiac drip POA Emergency hypertension, prior LHC POA New onset of AFib RVR POA Acute on chronic kidney disease POA Hypertroponinemia POA Hyperlipidemia POA ] PLAN: [ Admit to: ICU Consults: ICU, managing supervisor, log raft worker Antibiotics: None at this moment Tests: 2D echo, chest x-ray Drips nitroglycerin, heparin NEURO: Minimize central acting medications as possible. Fall Precautions. Well lighted room through the day and minimize interruptions through the night to prevent acute delirium. PULMONARY: Chest x-ray pending V/Q scan pending Supplemental 02 as needed BiPAP as necessary, for respiratory distress Titrate Fio2 to keep Spo2 > or = 90% DuoNebs and CPT as needed IS hourly while awake for pulmonary hygiene Out of bed to chair as tolerated VAP Bundle Maintain aspiration precautions at all times CARDIOVASCULAR: Document Improvement Specialist consultation s/p left heart catheterization stent placement proximal LAD through right wrist radial 2D echo pending New onset of AFib patient on metoprolol at this moment Follow hemodynamics. Vital signs per facility protocol GI & NUTRITION: Continue nutritional support Aspirations precautions Prokinetic agents and laxatives as needed KIDNEYS & ELECTROLYTES: Strict monitoring of intake and output Daily weights Avoid nephrotoxic agents Monitor electrolytes and replace as needed Goal urine output of 30mL/hr or 0.5mL/kg/hr Medications to be dosed according to renal function. Avoid contrast if possible ENDOCRINE: Maintain blood glucose between 100-180 at all times. Insulin sliding scale for blood glucose management Hypoglycemia and hyperglycemia protocol in place INFECTIOUS DISEASE: Trend temperature, WBC and procalcitonin level Follow cultures, deescalate antibiotics as soon as possible. Panculture if new onset fever HEMATOLOGY & COAGULATION: Monitor H&H. Keep Hgb > 7 Transfuse 1 unit of PRBC for Hgb < 7 Transfuse 1 pack of platelets of platelets < 20, 000 Watch for any signs and symptoms of bleeding SKIN: Pressure ulcer prevention per facility protocol Specialty mattress as needed Treatment plan discussed with patient and family at the bedside Medications to be reconciled once obtained by patient and/or family and availab le to be reconciled in computer p.r.n. medication for pain nausea and vomiting Questions were answered We will continue to monitor the patient closely Business Systems Manager for disposition Rehab: PT/OT GI: PPI DVT: SCD's Code Status: Full Resuscitation Disposition: TBD Prognosis: Guarded] ATTESTATION BY PHYSICIAN I have seen and examined the patient. I reviewed the documentation, medical decision making, and treatment plan as noted by the mid-level provider above. I agree with the findings and plan of care. REJI Helm MD STRUCTURAL ENGINEER Apr 20, 2024 12:49
[2024-04-20] MEDS ORDERED: LISI40TA9 PO (14:47)
[2024-04-20] MEDS ORDERED: ASPI-1197 PO (14:47)
[2024-04-20] MEDS ORDERED: ROVUSTATIN PO (14:59)
--- NOTE | 2024-04-20 16:13 | HMCIMG ---
CHEST 1VW HISTORY: Chest pain COMPARISON: None FINDINGS: A frontal projection of the chest was obtained. There are mild bilateral pulmonary infiltrates suggestive of pulmonary vascular congestion with possible superimposed pneumonitis. The heart is enlarged. Degenerative changes are seen. No evidence of aortic calcification is seen. IMPRESSION: 1. Mild bilateral pulmonary infiltrates are seen may be related to mild pulmonary vascular congestion with possible superimposed pneumonitis.
--- NOTE | 2024-04-20 16:56 | NUR ---
C/O OF CHEST PAIN THAT STARTED AN HOUR IN A HALF AGO PER PATIENT. ADM 1 NTG SQ, INCREASED NITRO DRIP TO 990 MICS/MIN FROM 80 FOR BP OF 151/83, HR 95, AFIB, AND STARTED O2 2LNC. PAIN LEVEL NOW A 1
[2024-04-20] MEDS: NITROGLYCERIN 0.4 MG SL TAB SL PRN (17:02)
[2024-04-20] MEDS: carVEDIlol 6.25 MG TABLET PO SCH (17:52)
[2024-04-20] MEDS: IpraTROPium 0.5 MG/2.5 ML INH IH SCH (18:00)
[2024-04-20] MEDS: HEParin 25,000 UNITS/250ML D5W 250 ML IV SCH (19:37)
[2024-04-20] MEDS: TICAGrelor 90 MG TABLET PO SCH (21:32)
[2024-04-20] MEDS: atorVAStatin 40 MG TABLET PO SCH (21:32)
[2024-04-20] MEDS: MAG/ALUM/SIMETH 30 ML UDCUP PO PRN (21:32)
[2024-04-20] MEDS: NITROGLYCERIN 50MG/D5W 250ML 250 BOT IV SCH (21:41)
--- NOTE | 2024-04-20 22:23 | NUR ---
PROGRESS NOTE PT TAKEN TO V/Q SCAN AT 2000 RETURNED AT 2100 VIA HOSPITAL BED. PT TOLERATED PROCEDURE WELL.
[2024-04-20] MEDS: EPTIFIBATIDE 75MG/100ML BOTTLE 100 ML IV SCH (22:26)
[2024-04-20] MEDS: ZOLPidem TARTrate 5 MG TAB PO PRN (22:42)
--- NOTE | 2024-04-20 23:04 | NUR ---
PROGRESS NOTE DR BOLTON NOTIFIED OF PT BLEEDING FROM THE GUMS. ORDERS TO STOP INTEGRILLIN DRIP.
[2024-04-21] VITALS (80 sets, daily range): BP systolic 103–158; BP diastolic 60–100; PULSE 92–135; RESP 7–54; TEMP 97.7–98.7; O2SAT 96–98
[2024-04-21] MEDS: metoPROLOL tartRATE 1 MG/ML 5ML VIAL IV PRN ×2 (01:18→18:20)
[2024-04-21 03:54] LABS: INFLUENZA TYPE A Negative For Type A (NEGATIVE); INFLUENZA TYPE B Negative For Type B (NEGATIVE)
[2024-04-21] MEDS: acetaMINOPHEN 325 MG TAB PO PRN (04:56)
[2024-04-21 05:13] LABS: BASOPHILS # (AUTO) 0.02 K/uL (0.00-0.20); BASOPHILS % (AUTO) 0.2 % (0.0-5.0); EOSINOPHILS # (AUTO) 0.05 K/uL (0.00-0.70); EOSINOPHILS % (AUTO) 0.4 % (0.0-8.0); HEMATOCRIT 39.1 % (42-54); IMMATURE GRANULOCYTE ABSOLUTE 0.09 K/uL (0-1); LYMPHOCYTES % (AUTO) 7.4 % (21.0-51.0); MEAN CORPUSCULAR HEMOGLOBIN 32.3 pg (27.0-33.0); MEAN CORPUSCULAR HGB CONC 35.3 g/dL (32.0-36.0); MEAN CORPUSCULAR VOLUME 91.6 fL (79-99); MONOCYTES # (AUTO) 1.8 K/uL (0.1-1.0); MONOCYTES % (AUTO) 13.3 % (3.0-13.0); NEUTROPHILS # (AUTO) 10.4 K/uL (1.8-7.7); PLATELET COUNT (AUTO) 274 K/uL (130-400); RED BLOOD CELL COUNT(AUTO) 4.27 MIL/uL (4.50-6.20); RED CELL DISTRIBUTION WIDTH 12.7 % (11.0-15.5); WHITE BLOOD COUNT (AUTO) 13.3 K/uL (4.8-10.8)
[2024-04-21 05:42] LABS: HEMOGLOBIN A1C 6.3 % (4.0-6.0)
[2024-04-21 05:52] LABS: ALBUMIN 2.9 g/dL (3.5-5.0); BILIRUBIN,DIRECT 0.2 mg/dL (0.0-0.3); BILIRUBIN,TOTAL 1.3 mg/dL (0.2-1.0); CREATININE 1.1 mg/dL (0.5-1.3); MAGNESIUM 1.8 mg/dL (1.80-2.40); POTASSIUM 3.8 mmol/L (3.5-5.1); TOTAL PROTEIN, SERUM 6.5 g/dL (6.0-8.3)
[2024-04-21] MEDS ORDERED: PoTASSium chl 10% ELIXIR 20MEQ 20 MEQ/15 ML UDCUP PO PRN (08:00)
[2024-04-21] MEDS ORDERED: PoTASSium chloRIDE 20MEQ/100ML 100 ML IV PRN (08:00)
[2024-04-21] MEDS: MAGNESIUM 2GM PREMIX 50ML 50 ML IV PRN (08:07)
[2024-04-21] MEDS: ASPIRIN 81MG CHEW TAB PO SCH (08:08)
[2024-04-21] MEDS: PoTASSium chloRIDE 20MEQ ER 20 MEQ ERTAB PO PRN (08:09)
[2024-04-21] MEDS: PoTASSium chloRIDE 20MEQ ER 20 MEQ ERTAB PO ONE (08:09)
[2024-04-21] MEDS: ondanSETRON 4MG INJ IV PRN (08:12)
--- NOTE | 2024-04-21 09:00 | NUR ---
Dr. Bruno and Connie ELECTRONIC HEALTH RECORDS SPECIALIST notified of elevated CK level and troponin level, ST elevation, and nausea complaint. Orders for NS 75ml/hr and lactic acid level were placed and executed. Patient comfortable at this time. No chest pain or pressure reported.
[2024-04-21] MEDS: 0.9%NACL 1000ML 1,000 ML IV SCH (09:44)
--- NOTE | 2024-04-21 09:58 | HMCIMG ---
NUCLEAR MEDICINE VENTILATION/PERFUSION SCAN INDICATION: Elevated d-dimer COMPARISON: Most Recent Chest Radiograph from 04/20/2024. RADIOPHARMACEUTICALS: 7.0 mCi of xenon-133 gas and 4.0 mCi of intravenous Tc 99m MAA FINDINGS: No abnormal matched or mismatched ventilation or perfusion defect noted. Symmetric bilateral distribution of radiopharmaceutical on both the perfusion and ventilation images identified. IMPRESSION: Negative for pulmonary embolism.
--- NOTE | 2024-04-21 10:39 | PN ---
[facility] PROGRESS NOTE Date of Service: Apr 21, 2024 Time of Service: 10:[address] Zhu SUBJECTIVE: [ 04/20 Patient is 64 years old male with a past medical history of hypertension, hyperlipidemia, who came to emergency department with substernal chest pain starting 6:00 a.m. this morning rated 10/10 intensity. At 1st patient felt like he has a gas problem and he took the [place] but at 7:30 a.m. his left arm started to hurt and became very called to touch and felt numb. Patient knew that there was something wrong so he asked the to drive him to emergency department to [facility]. Patient denies any shortness of breaths, nausea, vomiting or any other discomfort other than stated above. In emergency department patient was found to have anterior lateral ST-elevation with underlying AFib with rapid ventricular response code STEMI was called. Patient was taken to the labor relations specialist with and stent was placed to proximal LAD. At this moment patient was evaluated in ICU by nurse practitioner and physician during rounding. At this moment patient continues to be on aspirin atorvastatin Brilinta carvedilol metoprolol drip, normal saline at 100 mL/hour and heparin drip per protocol as requested by store clerk checker. WBC 8.9 hemoglobin 17.1 hematocrit 49.3 platelets 315. Sodium 139 potassium 3.9 chloride 101 CO2 29 BUN 21 creatinine 1.7 GFR 45 random glucose 159 calcium 9.3 CK 153 troponin positive x1 BNP 61. Patient is pending 2D echo and chest x- ray. Patient will be admitted under hospitalist care. ICU, shank cutter and store clerk checker consulted pending further evaluation 04/21 patient was seen by nurse practitioner and physician during rounding in room 217 while lying in the bed. Family members/ and son at the bedside. WBC 13.3 which is expected after a procedure. Troponin [id number]. Also patient's CK is 2686. Nurse practitioner asked RN to contact store clerk checker and ask if we can slowly hydrate patient with LR at 75 mL/hour and also taking for store clerk checker regarding the evaluated troponin. Patient was also experiencing some anxiety and palpitation as per patient he said he usually feels like that when his heart rate is above 100. Patient continues to be AFib in low 100s the Meckes that nurse practitioner was able to see was 110 heart rate on monitor. But at this moment patient was denying any palpitations anxiety or chest pain. We will order Xanax 0.25 mg q.6 hours if okay with the store clerk checker. Patient continues to be on heparin drip and nitro. In the meantime we will continue to monitor patient. A.m. labs ] REVIEW OF SYSTEMS CONSTITUTIONAL: Denies fevers, chills, or night sweats. No unintentional weight loss reported. NEUROLOGICAL: Denies headache, amaurosis fugax, motor weakness, sensory deficit, vertigo/spinning sensation, gait abnormalities, or tremors. ENT: No hearing loss, otalgia, otorrhea, rhinitis, rhinorrhea, hoarseness, or sore throat. CARDIOVASCULAR: Denies any exertional angina, dyspnea on exertion, orthopnea, paroxysmal nocturnal dyspnea, palpitations, life-threatening arrhythmias, claudication. Complains of chest pain and left hand pain with numbness PULMONARY: Denies any shortness of breath, cough, phlegm/sputum, hemoptysis, pleuritic chest pain. SLEEP: Denies morning headaches, daytime somnolence or napping. Denies difficulty falling asleep, staying asleep, waking from sleep. Denies knowledge of snoring. GASTROINTESTINAL: Denies any type of dysphagia to either liquids or solids. Denies nausea, vomiting, pyrosis, early satiety, abdominal pain, diarrhea, constipation, or changes in stool consistency or caliber. Denies coffee-ground emesis, hematemesis, hematochezia, or melanotic stools. GENITOURINARY: Denies frequency, urgency, nocturia, hematuria or incontinence (Storage/Irritative symptoms.) Low urinary stream, straining to void, urinary intermittency or hesitancy, splitting of the voiding stream, terminal dribbling. ENDOCRINOLOGIC: Denies polyuria, polydipsia, polyphagia or heat/cold intolerances. HEMATOLOGIC: Denies thrombophilia/previous clots, or coagulopathy/bleeding disorders. ONCOLOGIC: Denies personal history of malignancy. DERMATOLOGIC: Denies rashes or pruritus. PSYCHIATRIC: Denies any suicidal or homicidal ideation. Denies hallucinations. PHYSICAL EXAM GENERAL APPEARANCE: The patient is awake, alert, and oriented, in no acute cardiopulmonary distress. NEUROLOGICAL: Cranial nerves II-XII grossly intact. Motor is 5/5 in bilateral upper and lower extremities proximal to distal. No sensory deficits. HEENT: Face is symmetric. Pupils are equal and reactive. Extraocular movements are intact. NECK: Supple. No JVD. No thyromegaly. No submental, submandibular, pre- /postauricular, occipital or supraclavicular lymphadenopathy. CHEST: Normal chest expansion. No Telemetry. LUNGS: Absence of any rales, rhonchi or any wheezing. CARDIOVASCULAR: Regular. S1 and S2 normal. No appreciable rubs, murmurs or gallops. ABDOMEN: Soft, nontender, and nondistended. There is no rebound, voluntary guarding, or rigidity. : Deferred. No Hart. EXTREMITIES: Non-edematous and not cyanotic. No clubbing. Good capillary refill. SKIN: No skin breakdown. Vital Signs (last 8hr) Date Time Temp Pulse Resp B/P (MAP) Pulse Ox O2 Delivery O2 Flow Rate FiO2 04/21/24 08:07 140/90 04/21/24 06:38 103 18 N/A Room Air 21 04/21/24 06:15 103 25 131/69 (89) 97 04/21/24 06:00 101 24 124/60 (81) 96 04/21/24 05:45 104 16 123/72 (89) 97 04/21/24 05:30 92 26 127/65 (85) 97 04/21/24 05:15 114 29 144/96 (112) 95 04/21/24 05:00 107 21 127/62 (83) 96 04/21/24 04:45 106 21 128/85 (99) 95 04/21/24 04:45 124 125/92 04/21/24 04:30 112 27 134/81 (98) 96 04/21/24 04:15 113 18 125/92 (103) 96 04/21/24 04:00 118 22 138/80 (99) 96 04/21/24 04:00 96 Room Air* 0 21 04/21/24 04:00 97.7 04/21/24 03:45 119 28 146/93 (110) 94 04/21/24 03:30 113 47 121/78 (92) 95 04/21/24 03:15 119 30 133/83 (100) 95 04/21/24 03:00 109 28 133/87 (102) 96 04/21/24 02:58 18 N/A Room Air 21 LABS: Laboratory: Test 04/21/24 07:13 04/21/24 06:37 04/21/24 04:57 04/21/24 03:15 Range/Units Lactic Acid Level 1.8 0.8-2.5 mmol/L Activated Partial Thromboplast Time 103.5 #*H 26.3-35.5 SEC White Blood Count 13.3 #H 4.8-10.8 K/uL Red Blood Count 4.27 L 4.50-6.20 MIL/uL Hemoglobin 13.8 L 14.0-18.0 g/dL Hematocrit 39.1 #L 42-54 % Mean Corpuscular Volume 91.6 79-99 fL Mean Corpuscular Hemoglobin 32.3 27.0-33.0 pg Mean Corpuscular Hemoglobin Concent 35.3 32.0-36.0 g/dL Red Cell Distribution Width 12.7 11.0-15.5 % Platelet Count 274 130-400 K/uL Mean Platelet Volume 10.3 7.5-10.5 fL Immature Granulocyte % (Auto) 0.7 0-1 % Neutrophils (%) (Auto) 78.0 H 40.0-77.0 % Lymphocytes (%) (Auto) 7.4 L 21.0-51.0 % Monocytes (%) (Auto) 13.3 H 3.0-13.0 % Eosinophils (%) (Auto) 0.4 0.0-8.0 % Basophils (%) (Auto) 0.2 0.0-5.0 % Neutrophils # (Auto) 10.4 H 1.8-7.7 K/uL Lymphocytes # (Auto) 1.0 1.0-4.8 K/uL Monocytes # (Auto) 1.8 H 0.1-1.0 K/uL Eosinophils # (Auto) 0.05 0.00-0.70 K/uL Basophils # (Auto) 0.02 0.00-0.20 K/uL Absolute Immature Granulocyte (auto 0.09 0-1 K/uL Nucleated Red Blood Cells 0.0 0.0-0.19 % White Cell Morphology Comment See comments Sodium Level 134 L 136-145 mmol/L Potassium Level 3.8 3.5-5.1 mmol/L Chloride Level 102 101-111 mmol/L Carbon Dioxide Level 23 21-32 mmol/L Blood Urea Nitrogen 18 7-18 mg/dL Creatinine 1.1 0.5-1.3 mg/dL Glomerular Filtration Rate Calc 76 >90 mL/min Random Glucose 170 H 70-105 mg/dL Hemoglobin A1c 6.3 H 4.0-6.0 % Estimated Average Glucose (eAG) 134 H 70-126 mg/dL Total Calcium 8.3 L 8.5-10.1 mg/dL Magnesium Level 1.80 1.80-2.40 mg/dL Total Bilirubin 1.3 H 0.2-1.0 mg/dL Direct Bilirubin 0.2 0.0-0.3 mg/dL Aspartate Amino Transf (AST/SGOT) 607 *H 10-37 U/L Alanine Aminotransferase (ALT/SGPT) 111 H 12-78 U/L Alkaline Phosphatase 72 50-136 U/L Ammonia 35 H 11-32 umol/L Total Creatine Kinase 2696 #*H 21-232 U/L Troponin I High Sensitivity > 208514 *H 4-75 ng/L B-Type Natriuretic Peptide 280 H 0-100 pg/mL Total Protein 6.5 6.0-8.3 g/dL Albumin 2.9 L 3.5-5.0 g/dL Procalcitonin < 0.05 L 0.05-0.5 ng/mL Influenza Type A Antigen Negative For Type A NEGATIVE Influenza Type B Antigen Negative For Type B NEGATIVE Test 04/20/24 21:26 04/20/24 09:17 Range/Units Whole Blood Glucose 192 H 70-110 MG/DL D-Dimer Quantitative (PE/DVT) 584 *H 0-500 ng/mL Troponin I 0.07 H 0.00-0.05 ng/mL Current Medications Medications (Trade) Dose Ordered Sig/Shala Route PRN Reason Start Time Stop Time Status Last Admin Dose Admin Acetaminophen (TYLenol 325MG TAB) 650 mg Q4H PRN PO MILD PAIN (1-3) 04/20/24 10:30 05/20/24 10:29 04/21/24 04:56 650 MG Acetaminophen (TYLenol 325MG TAB) 650 mg Q6H PRN PO TEMPERATURE GREATER THAN 101.5 04/20/24 10:30 05/20/24 10:29 Al Hydroxide/Mg Hydroxide (MAALox PLUS 30ML) 30 ml Q6H PRN PO INDIGESTION 04/20/24 10:30 05/20/24 10:29 04/20/24 21:32 30 ML Albuterol Sulfate (Proventil 0.083% 2.5mg/3ml) 2.5 mg [id number] PRN IH RESPIRATORY SYMPTOMS 04/20/24 10:30 05/20/24 10:29 Alprazolam (XANax 0.25MG) 0.25 mg BID PRN PO ANXIETY/AGITATION 04/21/24 09:30 05/21/24 09:29 Aspirin (Aspirin 81mg Chew Tab) 81 mg DAILY PO 04/21/24 09:00 05/21/24 08:59 04/21/24 08:08 81 MG Atorvastatin Calcium (LIPItor 40MG) 40 mg HS PO 04/20/24 21:00 04/21/24 10:01 DC 04/20/24 21:32 40 MG Carvedilol (Coreg 6.25MG) 6.25 mg BID PO 04/20/24 17:30 05/20/24 17:29 04/21/24 08:07 6.25 MG Dextrose (D50w) 50 ml AD PRN IV HYPOGLYCEMIA PROTOCOL 04/20/24 10:30 05/20/24 10:29 Diphenhydramine HCl (BENAdryl CAP) 25 mg Q4H PRN PO MILD ITCHING/RASH 04/20/24 10:30 05/20/24 10:29 Eptifibatide 100 ml @ 0 mls/hr PROTOCOL IV 04/20/24 11:00 04/21/24 04:59 DC 04/20/24 22:26 15.2 MLS/HR Famotidine (Pepcid 20mg Vial) 20 mg BID PRN IV NAUSEA/VOMITING 04/20/24 10:30 04/20/24 10:19 DC Glucagon (Glucagon 1mg Kit) 1 mg AD PRN IM HYPOGLYCEMIA PROTOCOL 04/20/24 10:30 05/20/24 10:29 Guaifenesin/ Dextromethorphan (RobiTUSSin DM 200/20MG 10ML) 10 ml Q4H PRN PO COUGH 04/20/24 10:30 05/20/24 10:29 Heparin Sodium/ Dextrose 250 ml @ 0 mls/hr PROTOCOL IV 04/20/24 09:30 05/20/24 09:29 04/20/24 19:37 16.2 MLS/HR Insulin Human Regular (humuLIN R 100 UNIT/ML 3ML) INSULIN SLIDING SCAL... ACHS SQ 04/20/24 11:30 05/20/24 11:29 04/20/24 21:38 2 UNIT Ipratropium Dougherty (AtrovENT UD) 0.5 mg [id number] IH 04/20/24 12:00 05/20/24 11:59 Lactulose (Constulose 20gm/ 30ml Udcup) 20 gm BID PRN PO CONSTIPATION 04/20/24 10:30 05/20/24 10:29 Magnesium Sulfate 50 ml @ 0 mls/hr PROTOCOL PRN IV other 04/20/24 10:30 05/20/24 10:29 04/21/24 08:07 25 MLS/HR Metoprolol Tartrate (loprESSOR) 5 mg Q5M PRN IV Heart rate greater than 110 04/20/24 11:00 04/21/24 04:45 5 MG Nitroglycerin (Nitrostat) 0.4 mg PROTOCOL PRN SL CHEST PAIN 04/20/24 10:30 05/20/24 10:29 04/20/24 17:02 0.4 MG Nitroglycerin/ Dextrose 250 ml @ 0 mls/hr PROTOCOL IV 04/20/24 11:00 05/20/24 10:59 04/21/24 06:32 40 MLS/HR Ondansetron HCl (zoFRAN 4MG INJ) 4 mg Q6H PRN IV NAUSEA/VOMITING 04/20/24 10:30 05/20/24 10:29 04/21/24 08:12 4 MG Potassium Chloride 100 ml @ 100 mls/hr AD PRN IV POTASSIUM PROTOCOL 04/21/24 08:00 05/21/24 07:59 Potassium Chloride (K-Dur/Klor-Con 20meq) 20 meq AD PRN PO POTASSIUM PROTOCOL 04/21/24 08:00 05/21/24 07:59 04/21/24 08:09 20 MEQ Potassium Chloride (KCl 10% Elixir 20meq/15ml) 20 meq AD PRN PO POTASSIUM PROTOCOL 04/21/24 08:00 05/21/24 07:59 Sodium Chloride 1,000 ml @ 75 mls/hr [id number] IV 04/21/24 09:30 05/21/24 09:29 04/21/24 09:44 75 MLS/HR Sodium Chloride 1,000 ml @ 100 mls/hr Q10H IV 04/20/24 11:00 04/20/24 16:59 DC Ticagrelor (BRILinta) 90 mg BID PO 04/20/24 21:00 05/20/24 20:59 04/21/24 08:08 90 MG Ticagrelor (BRILinta) 180 mg ONCE PO 04/20/24 09:30 04/20/24 09:26 DC Zolpidem Tartrate (AmbIEN) 5 mg HS PRN PO INSOMNIA 04/20/24 10:30 05/20/24 10:29 04/20/24 22:42 5 MG DIAGNOSTICS / RADIOLOGY: [ ] ASSESSMENT: [ Acute STEMI, code STEMI called in ER POA S/p left heart catheterization 04/20/2024 placement on stent proximal LAD with POA S/p C s/p symptomatic severe hypotension requiring cardiac drip POA Emergency hypertension, prior LHC POA New onset of AFib RVR POA Acute on chronic kidney disease POA Hypertroponinemia POA Hyperlipidemia POA ] PLAN: [ Admit to: ICU Consults: ICU, shank cutter, store clerk checker Antibiotics: None at this moment Tests: 2D echo, Drips nitroglycerin, heparin NEURO: Minimize central acting medications as possible. Fall Precautions. Well lighted room through the day and minimize interruptions through the night to prevent acute delirium. PULMONARY: Chest x-ray p mild pulmonary infiltrate pulmonary vascular congestion and pneumonitis V/Q scan pending Supplemental 02 as needed BiPAP as necessary, for respiratory distress Titrate Fio2 to keep Spo2 > or = 90% DuoNebs and CPT as needed IS hourly while awake for pulmonary hygiene Out of bed to chair as tolerated VAP Bundle Maintain aspiration precautions at all times CARDIOVASCULAR: Biometric Fingerprinting Technician consultation s/p left heart catheterization stent placement proximal LAD through right wrist radial 2D echo pending New onset of AFib patient on metoprolol at this moment Follow hemodynamics. Vital signs per facility protocol GI & NUTRITION: Continue nutritional support Aspirations precautions Prokinetic agents and laxatives as needed KIDNEYS & ELECTROLYTES: Strict monitoring of intake and output Daily weights Avoid nephrotoxic agents Monitor electrolytes and replace as needed Goal urine output of 30mL/hr or 0.5mL/kg/hr Medications to be dosed according to renal function. Avoid contrast if possible ENDOCRINE: Maintain blood glucose between 100-180 at all times. Insulin sliding scale for blood glucose management Hypoglycemia and hyperglycemia protocol in place INFECTIOUS DISEASE: Trend temperature, WBC and procalcitonin level Follow cultures, deescalate antibiotics as soon as possible. Panculture if new onset fever HEMATOLOGY & COAGULATION: Monitor H&H. Keep Hgb > 7 Transfuse 1 unit of PRBC for Hgb < 7 Transfuse 1 pack of platelets of platelets < 20, 000 Watch for any signs and symptoms of bleeding SKIN: Pressure ulcer prevention per facility protocol Specialty mattress as needed Treatment plan discussed with patient and family at the bedside Medications to be reconciled once obtained by patient and/or family and a vailable to be reconciled in computer p.r.n. medication for pain nausea and vomiting Questions were answered We will continue to monitor the patient closely Extension Specialist for disposition Rehab: PT/OT GI: PPI DVT: SCD's Code Status: Full Resuscitation Disposition: TBD Prognosis: Guarded] ATTESTATION BY PHYSICIAN I have seen and examined the patient. I reviewed the documentation, medical decision making, and treatment plan as noted by the mid-level provider above. I agree with the findings and plan of care. REJI Helm MD [employer] Apr 21, 2024 10:39
[2024-04-21] MEDS: metoPROLOL tartRATE 1 MG/ML 5ML VIAL IV ONE (14:24)
--- NOTE | 2024-04-21 15:00 | PN ---
[facility] CARDIOLOGY PROGRESS NOTE Date Patient Seen: Apr 21, 2024 Time of Visit: 14:56 Problem List: Anterolateral STEMI New onset AF with RVR Interval History: Seen in ICU Denies chest pain Nitroglycerin and heparin drips infusing Patient remains with atrial fibrillation, intermittent rapid ventricular response with resting heart rates up to 120s at rest Overnight, Integrilin drip discontinued due to bleeding gums concomitant while on heparin drip. Physical Examination: GENERAL: [No acute distress.] HEAD: [Normal with no signs of head trauma.] EYES: [PERRLA, EOMI, conjunctiva and sclera normal.] LUNGS: [Clear breath sounds bilaterally. No wheezes, or rhonchi.] HEART: [Irregular regular rhythm, tachycardic. Normal S1 and S2 without murmur s, gallop or rub.] VASC: [Peripheral pulses +2 bilaterally. Right radial artery access site nontender, no hematoma 2+ pulse.] ABD: [soft, nontender] EXT: [No clubbing, cyanosis or edema.] SKIN: [warm, dry.] NEURO: [Awake, alert, and oriented x3. No focal sensory or strength deficits noted.] Laboratory: [ ] Hematology Labs: Test 04/21/24 04:57 Range/Units White Blood Count 13.3 #H 4.8-10.8 K/uL Red Blood Count 4.27 L 4.50-6.20 MIL/uL Hemoglobin 13.8 L 14.0-18.0 g/dL Hematocrit 39.1 #L 42-54 % Mean Corpuscular Volume 91.6 79-99 fL Mean Corpuscular Hemoglobin 32.3 27.0-33.0 pg Mean Corpuscular Hemoglobin Concent 35.3 32.0-36.0 g/dL Red Cell Distribution Width 12.7 11.0-15.5 % Platelet Count 274 130-400 K/uL Mean Platelet Volume 10.3 7.5-10.5 fL Immature Granulocyte % (Auto) 0.7 0-1 % Neutrophils (%) (Auto) 78.0 H 40.0-77.0 % Lymphocytes (%) (Auto) 7.4 L 21.0-51.0 % Monocytes (%) (Auto) 13.3 H 3.0-13.0 % Eosinophils (%) (Auto) 0.4 0.0-8.0 % Basophils (%) (Auto) 0.2 0.0-5.0 % Neutrophils # (Auto) 10.4 H 1.8-7.7 K/uL Lymphocytes # (Auto) 1.0 1.0-4.8 K/uL Monocytes # (Auto) 1.8 H 0.1-1.0 K/uL Eosinophils # (Auto) 0.05 0.00-0.70 K/uL Basophils # (Auto) 0.02 0.00-0.20 K/uL Absolute Immature Granulocyte (auto 0.09 0-1 K/uL Nucleated Red Blood Cells 0.0 0.0-0.19 % White Cell Morphology Comment See comments Chemistry Labs: Test 04/21/24 10:56 04/21/24 07:13 04/21/24 04:57 04/20/24 09:17 Range/Units Whole Blood Glucose 181 H 70-110 MG/DL Lactic Acid Level 1.8 0.8-2.5 mmol/L Sodium Level 134 L 136-145 mmol/L Potassium Level 3.8 3.5-5.1 mmol/L Chloride Level 102 101-111 mmol/L Carbon Dioxide Level 23 21-32 mmol/L Blood Urea Nitrogen 18 7-18 mg/dL Creatinine 1.1 0.5-1.3 mg/dL Glomerular Filtration Rate Calc 76 >90 mL/min Random Glucose 170 H 70-105 mg/dL Hemoglobin A1c 6.3 H 4.0-6.0 % Estimated Average Glucose (eAG) 134 H 70-126 mg/dL Total Calcium 8.3 L 8.5-10.1 mg/dL Magnesium Level 1.80 1.80-2.40 mg/dL Total Bilirubin 1.3 H 0.2-1.0 mg/dL Direct Bilirubin 0.2 0.0-0.3 mg/dL Aspartate Amino Transf (AST/SGOT) 607 *H 10-37 U/L Alanine Aminotransferase (ALT/SGPT) 111 H 12-78 U/L Alkaline Phosphatase 72 50-136 U/L Ammonia 35 H 11-32 umol/L Total Creatine Kinase 2696 #*H 21-232 U/L Troponin I High Sensitivity > 282519 *H 4-75 ng/L B-Type Natriuretic Peptide 280 H 0-100 pg/mL Total Protein 6.5 6.0-8.3 g/dL Albumin 2.9 L 3.5-5.0 g/dL Procalcitonin < 0.05 L 0.05-0.5 ng/mL Troponin I 0.07 H 0.00-0.05 ng/mL Coagulation Labs: Test 04/21/24 12:45 04/20/24 09:17 Range/Units Activated Partial Thromboplast Time 74.9 #H 26.3-35.5 SEC D-Dimer Quantitative (PE/DVT) 584 *H 0-500 ng/mL Impression and Plan: Anterolateral STEMI, slightly delayed presentation with Q waves present on initial EKG, POD 1 from Percutaneous transluminal coronary angioplasty of the proximal to mid left anterior descending artery with placement of 4.5mm x 18 mm Rafi [place] drug eluting stent post dilated to 4.6mm by LULU under IVUS guidance Atrial fibrillation with rapid ventricular response, new onset on presentation Prediabetes, A1c 6.3%, new diagnosis Hypertension Continue uninterrupted DAPT with aspirin, ticagrelor High intensity statin with goal LDL <70. Follow up echocardiogram to evaluate the LVEF Continue heparin infusion, plan to transition to DOAC on discharge for 30 days triple therapy (+PPI). Integrilin drip discontinued due to bleeding gums Continue nitroglycerin drip, with parameters to decrease dose if hypotension Continue ICU care, possible TTF tomorrow if HR controlled and nitroglycerin gtt can be weaned off. HOMA CALIX DO Apr 21, 2024 15:00
--- NOTE | 2024-04-21 16:55 | NUR ---
DCP Pt awake, alert, oriented x3 lives with spouse Martha Madrid [phone]. PCP is Imtiaz Nielson. Pt level of function is independent states he recently retired and does not use any medical equipment, has not had home health services or senior living facility. Anticipates discharge is for home. Addendum: 04/21/24 at 1701 by HILARIA ZAMBRANO RN CM Amended: Links added. Addendum: 04/21/24 at 1704 by HILARIA ZAMBRANO RN CM Provided pt with community [facility] packet. [facility] to assist with possibly qualifying for insurance.
[2024-04-21] MEDS: carVEDIlol 12.5 MG TABLET PO SCH (20:55)
[2024-04-22] VITALS (21 sets, daily range): BP systolic 105–148; BP diastolic 59–100; PULSE 85–110; RESP 7–32; TEMP 97.8–98.5; O2SAT 96–98
[2024-04-22] MEDS: ALPRAZolam 0.25 MG TABLET PO PRN (01:46)
[2024-04-22 04:59] LABS: BASOPHILS # (AUTO) 0.02 K/uL (0.00-0.20); BASOPHILS % (AUTO) 0.2 % (0.0-5.0); EOSINOPHILS % (AUTO) 1.1 % (0.0-8.0); HEMATOCRIT 34.5 % (42-54); IMMATURE GRANULOCYTE ABSOLUTE 0.08 K/uL (0-1); LYMPHOCYTES # (AUTO) 1.3 K/uL (1.0-4.8); LYMPHOCYTES % (AUTO) 13.6 % (21.0-51.0); MEAN CORPUSCULAR HGB CONC 35.1 g/dL (32.0-36.0); MONOCYTES # (AUTO) 1.3 K/uL (0.1-1.0); NEUTROPHILS # (AUTO) 6.6 K/uL (1.8-7.7); NEUTROPHILS % (AUTO) 70.2 % (40.0-77.0); PLATELET COUNT (AUTO) 212 K/uL (130-400); RED BLOOD CELL COUNT(AUTO) 3.67 MIL/uL (4.50-6.20); RED CELL DISTRIBUTION WIDTH 12.8 % (11.0-15.5); WHITE BLOOD COUNT (AUTO) 9.4 K/uL (4.8-10.8)
[2024-04-22 05:13] LABS: ALBUMIN 2.6 g/dL (3.5-5.0); BILIRUBIN,TOTAL 0.9 mg/dL (0.2-1.0); CREATININE 1.1 mg/dL (0.5-1.3); MAGNESIUM 1.8 mg/dL (1.80-2.40); POTASSIUM 3.8 mmol/L (3.5-5.1); TOTAL PROTEIN, SERUM 5.8 g/dL (6.0-8.3)
[2024-04-22] MEDS: LoSARTan 50 MG TABLET PO SCH (11:19)
[2024-04-22] MEDS: carVEDIlol 12.5 MG TABLET PO ONE (11:20)
[2024-04-22] MEDS ORDERED: IpraTROPium 0.5 MG/2.5 ML INH IH PRN (11:30)
--- NOTE | 2024-04-22 11:35 | PN ---
PROGRESS NOTE PROBLEM LIST: Anterolateral STEMI, slightly delayed presentation with Q waves present on initial EKG, POD 1 from Percutaneous transluminal coronary angioplasty of the proximal to mid left anterior descending artery with placement of 4.5mm x 18 mm [place] drug eluting stent post dilated to 4.6mm by LULU under IVUS guidance Atrial fibrillation with rapid ventricular response, new onset on presentation Prediabetes, A1c 6.3%, new diagnosis Hypertension INTERIM HISTORY OF PRESENT ILLNESS: Patient has remained in ICU on heparin drip and nitroglycerin drip with good control of blood pressure. He denies any chest pain pressure tightness. Heart rate has been relatively well controlled but not optimally controlled on carvedilol 12.5 mg twice daily. Adjustments to medications will need to be made. 2D echocardiogram currently pending. Laboratory data has been reviewed and is stable. REVIEW OF SYSTEMS: No fever, headache, chest pain, abdominal pain, nausea, vomiting, or diarrhea. VITAL SIGNS Vital Signs Date Time Temp Pulse Resp B/P (MAP) Pulse Ox O2 Delivery O2 Flow Rate FiO2 04/22/24 11:20 128/72 04/22/24 08:00 98.1 04/22/24 08:00 97 Room Air* 0 21 04/22/24 05:00 99 17 Laboratory Tests 04/22/24 04:38 LABS/MEDS Laboratory Tests Test 04/21/24 12:45 04/21/24 16:37 04/21/24 18:32 04/21/24 21:08 Activated Partial Thromboplast Time 74.9 SEC (26.3-35.5) #H 59.1 SEC (26.3-35.5) H Whole Blood Glucose 101 MG/DL (70-110) 149 MG/DL (70-110) H Test 04/22/24 00:36 04/22/24 04:38 04/22/24 06:40 Activated Partial Thromboplast Time 55.5 SEC (26.3-35.5) H 58.4 SEC (26.3-35.5) H White Blood Count 9.4 K/uL (4.8-10.8) # Red Blood Count 3.67 MIL/uL (4.50-6.20) L Hemoglobin 12.1 g/dL (14.0-18.0) L Hematocrit 34.5 % (42-54) L Mean Corpuscular Volume 94.0 fL (79-99) Mean Corpuscular Hemoglobin 33.0 pg (27.0-33.0) Mean Corpuscular Hemoglobin Concent 35.1 g/dL (32.0-36.0) Red Cell Distribution Width 12.8 % (11.0-15.5) Platelet Count 212 K/uL (130-400) Mean Platelet Volume 10.4 fL (7.5-10.5) Immature Granulocyte % (Auto) 0.9 % (0-1) Neutrophils (%) (Auto) 70.2 % (40.0-77.0) Lymphocytes (%) (Auto) 13.6 % (21.0-51.0) L Monocytes (%) (Auto) 14.0 % (3.0-13.0) H Eosinophils (%) (Auto) 1.1 % (0.0-8.0) Basophils (%) (Auto) 0.2 % (0.0-5.0) Neutrophils # (Auto) 6.6 K/uL (1.8-7.7) Lymphocytes # (Auto) 1.3 K/uL (1.0-4.8) Monocytes # (Auto) 1.3 K/uL (0.1-1.0) H Eosinophils # (Auto) 0.10 K/uL (0.00-0.70) Basophils # (Auto) 0.02 K/uL (0.00-0.20) Absolute Immature Granulocyte (auto 0.08 K/uL (0-1) Nucleated Red Blood Cells 0.0 % (0.0-0.19) Sodium Level 134 mmol/L (136-145) L Potassium Level 3.8 mmol/L (3.5-5.1) Chloride Level 107 mmol/L (101-111) Carbon Dioxide Level 21 mmol/L (21-32) Blood Urea Nitrogen 13 mg/dL (7-18) Creatinine 1.1 mg/dL (0.5-1.3) Glomerular Filtration Rate Calc 76 mL/min (>90) Random Glucose 141 mg/dL (70-105) H Total Calcium 7.7 mg/dL (8.5-10.1) L Magnesium Level 1.80 mg/dL (1.80-2.40) Total Bilirubin 0.9 mg/dL (0.2-1.0) # Aspartate Amino Transf (AST/SGOT) 186 U/L (10-37) H Alanine Aminotransferase (ALT/SGPT) 66 U/L (12-78) # Alkaline Phosphatase 58 U/L (50-136) Total Protein 5.8 g/dL (6.0-8.3) L Albumin 2.6 g/dL (3.5-5.0) L Current Medications Heparin Sodium (Porcine) 5,000 unit STK-MED ONCE .ROUTE; Start 04/20/24 at 09:14; Stop 04/20/24 at 09:14; Status DC Heparin Sodium/ Dextrose 250 ml @ As Directed STK-MED ONCE IV; Start 04/20/24 at 09:14; Stop 04/20/24 at 09:14; Status DC Aspirin 325 mg ONCE ONCE PO; Start 04/20/24 at 09:30; Stop 04/20/24 at 09:31; Status DC Lidocaine HCl 20 ml STK-MED ONCE .ROUTE; Start 04/20/24 at 09:17; Stop 04/20/24 at 09:18; Status DC Iohexol 75 ml STK-MED ONCE IV; Start 04/20/24 at 09:17; Stop 04/20/24 at 09:18; Status DC Heparin Sodium/ Sodium Chloride 1,000 ml @ As Directed STK-MED ONCE IV; Start 04/20/24 at 09:18; Stop 04/20/24 at 09:18; Status DC Nitroglycerin 50 mg STK-MED ONCE .ROUTE; Start 04/20/24 at 09:18; Stop 04/20/24 at 09:18; Status DC Ticagrelor 180 mg ONCE ONCE PO Last administered on 04/20/24at 09:20; Start 04/20/24 at 09:30; Stop 04/20/24 at 09:31; Status DC Ticagrelor 90 mg STK-MED ONCE .ROUTE; Start 04/20/24 at 09:20; Stop 04/20/24 at 09:20; Status DC Heparin Sodium (Porcine) 5,000 unit STAT ONCE IV Last administered on 04/20/24at 09:15; Start 04/20/24 at 09:30; Stop 04/20/24 at 09:31; Status DC Heparin Sodium/ Dextrose 250 ml @ 0 mls/hr PROTOCOL IV Last administered on 04/21/24at 14:31; Start 04/20/24 at 09:30; Stop 04/22/24 at 11:07; Status DC Ticagrelor 180 mg ONCE PO; Start 04/20/24 at 09:30; Stop 04/20/24 at 09:26; Status DC Heparin Sodium (Porcine) 10,000 unit STK-MED ONCE .ROUTE; Start 04/20/24 at 09:26; Stop 04/20/24 at 09:26; Status DC Aspirin 325 mg STK-MED ONCE PO; Start 04/20/24 at 09:26; Stop 04/20/24 at 09:26; Status DC Verapamil HCl 5 mg STK-MED ONCE .ROUTE; Start 04/20/24 at 09:29; Stop 04/20/24 at 09:29; Status DC Fentanyl Citrate 100 mcg STK-MED ONCE .ROUTE; Start 04/20/24 at 09:31; Stop 04/20/24 at 09:31; Status DC Midazolam HCl 2 mg STK-MED ONCE .ROUTE; Start 04/20/24 at 09:31; Stop 04/20/24 at 09:31; Status DC Metoprolol Tartrate 5 mg STK-MED ONCE IV; Start 04/20/24 at 09:38; Stop 04/20/24 at 09:38; Status DC Eptifibatide 20 mg STK-MED ONCE IVP; Start 04/20/24 at 09:52; Stop 04/20/24 at 09:52; Status DC Metoprolol Tartrate 5 mg STK-MED ONCE IV; Start 04/20/24 at 09:53; Stop 04/20/24 at 09:53; Status DC Eptifibatide 20 mg STK-MED ONCE IVP; Start 04/20/24 at 09:58; Stop 04/20/24 at 09:58; Status DC Heparin Sodium/ Sodium Chloride 500 ml @ As Directed STK-MED ONCE IV; Start 04/20/24 at 10:08; Stop 04/20/24 at 10:09; Status DC Insulin Human Regular INSULIN SLIDING SCAL... ACHS SQ Last administered on 04/21/24at 12:03; Start 04/20/24 at 11:30; Stop 05/20/24 at 11:29 Dextrose 50 ml AD PRN IV; Start 04/20/24 at 10:30; Stop 05/20/24 at 10:29 Glucagon 1 mg AD PRN IM; Start 04/20/24 at 10:30; Stop 05/20/24 at 10:29 Magnesium Sulfate 50 ml @ 0 mls/hr PROTOCOL PRN IV Last administered on 04/22/24at 06:36; Start 04/20/24 at 10:30; Stop 05/20/24 at 10:29 Diphenhydramine HCl 25 mg Q4H PRN PO; Start 04/20/24 at 10:30; Stop 05/20/24 at 10:29 Acetaminophen 650 mg Q6H PRN PO; Start 04/20/24 at 10:30; Stop 05/20/24 at 10:29 Acetaminophen 650 mg Q4H PRN PO Last administered on 04/21/24at 16:46; Start 04/20/24 at 10:30; Stop 05/20/24 at 10:29 Ondansetron HCl 4 mg Q6H PRN IV Last administered on 04/21/24at 13:02; Start 04/20/24 at 10:30; Stop 05/20/24 at 10:29 Zolpidem Tartrate 5 mg HS PRN PO Last administered on 04/20/24at 22:42; Start 04/20/24 at 10:30; Stop 05/20/24 at 10:29 Al Hydroxide/Mg Hydroxide 30 ml Q6H PRN PO Last administered on 04/20/24at 21:32; Start 04/20/24 at 10:30; Stop 05/20/24 at 10:29 Lactulose 20 gm BID PRN PO; Start 04/20/24 at 10:30; Stop 05/20/24 at 10:29 Nitroglycerin 0.4 mg PROTOCOL PRN SL Last administered on 04/20/24at 17:02; Start 04/20/24 at 10:30; Stop 05/20/24 at 10:29 Guaifenesin/ Dextromethorphan 10 ml Q4H PRN PO; Start 04/20/24 at 10:30; Stop 05/20/24 at 10:29 Ipratropium [place] 0.5 mg [id number] IH; Start 04/20/24 at 12:00; Stop 04/22/24 at 11:06; Status DC Famotidine 20 mg BID PRN IV; Start 04/20/24 at 10:30; Stop 04/20/24 at 10:19; Status DC Albuterol Sulfate 2.5 mg [id number] PRN IH; Start 04/20/24 at 10:30; Stop 05/20/24 at 10:29 Eptifibatide 100 ml @ As Directed STK-MED ONCE IV; Start 04/20/24 at 10:16; Stop 04/20/24 at 10:16; Status DC Nitroglycerin/ Dextrose 1 ml @ As Directed STK-MED ONCE .ROUTE; Start 04/20/24 at 10:25; Stop 04/20/24 at 10:26; Status DC Metoprolol Tartrate 5 mg STK-MED ONCE IV; Start 04/20/24 at 10:28; Stop 04/20/24 at 10:29; Status DC Eptifibatide 100 ml @ 0 mls/hr PROTOCOL IV Last administered on 04/20/24at 22:26; Start 04/20/24 at 11:00; Stop 04/21/24 at 04:59; Status DC Sodium Chloride 1,000 ml @ 100 mls/hr Q10H IV; Start 04/20/24 at 11:00; Stop 04/20/24 at 16:59; Status DC Carvedilol 6.25 mg BID PO Last administered on 04/21/24at 08:07; Start 04/20/24 at 17:30; Stop 04/21/24 at 14:56; Status DC Aspirin 81 mg DAILY PO Last administered on 04/22/24at 08:23; Start 04/21/24 at 09:00; Stop 05/21/24 at 08:59 Metoprolol Tartrate 5 mg Q5M PRN IV Last administered on 04/21/24at 12:03; Start 04/20/24 at 11:00; Stop 04/21/24 at 12:03; Status DC Ticagrelor 90 mg BID PO Last administered on 04/22/24at 08:23; Start 04/20/24 at 21:00; Stop 05/20/24 at 20:59 Atorvastatin Calcium 40 mg HS PO Last administered on 04/20/24at 21:32; Start 04/20/24 at 21:00; Stop 04/21/24 at 10:01; Status DC Nitroglycerin/ Dextrose 250 ml @ 0 mls/hr PROTOCOL IV Last administered on 04/22/24at 08:23; Start 04/20/24 at 11:00; Stop 05/20/24 at 10:59 Heparin Sodium (Porcine) 7,000 unit ONCE ONCE IV Last administered on 04/20/24at 18:54; Start 04/20/24 at 19:00; Stop 04/20/24 at 19:01; Status DC Potassium Chloride 100 ml @ 100 mls/hr AD PRN IV; Start 04/21/24 at 08:00; Stop 05/21/24 at 07:59 Potassium Chloride 20 meq AD PRN PO; Start 04/21/24 at 08:00; Stop 05/21/24 at 07:59 Potassium Chloride 20 meq AD PRN PO Last administered on 04/22/24at 06:35; Start 04/21/24 at 08:00; Stop 05/21/24 at 07:59 Potassium Chloride 20 meq STK-MED ONCE PO; Start 04/21/24 at 08:01; Stop 04/21/24 at 08:01; Status DC Sodium Chloride 1,000 ml @ 75 mls/hr [id number] IV Last administered on 04/21/24at 22:38; Start 04/21/24 at 09:30; Stop 05/21/24 at 09:29 Alprazolam 0.25 mg BID PRN PO Last administered on 04/22/24at 01:46; Start 04/21/24 at 09:30; Stop 05/21/24 at 09:29 Metoprolol Tartrate 5 mg STK-MED ONCE IV; Start 04/21/24 at 12:56; Stop 04/21/24 at 12:57; Status DC Metoprolol Tartrate 5 mg Q4H PRN IV Last administered on 04/21/24at 18:20; Start 04/21/24 at 13:00; Stop 05/21/24 at 12:59 Carvedilol 12.5 mg BID PO Last administered on 04/22/24at 08:24; Start 04/21/24 at 21:00; Stop 04/22/24 at 11:07; Status DC Losartan Potassium 50 mg DAILY PO Last administered on 04/22/24at 11:19; Start 04/22/24 at 10:30; Stop 05/22/24 at 10:29 Ipratropium [place] 0.5 mg [id number] PRN IH; Start 04/22/24 at 11:30; Stop 05/20/24 at 11:59 Carvedilol 12.5 mg ONCE ONCE PO Last administered on 04/22/24at 11:20; Start 04/22/24 at 11:30; Stop 04/22/24 at 11:31; Status DC Carvedilol 25 mg BID PO; Start 04/22/24 at 21:00; Stop 05/22/24 at 20:59 PHYSICAL EXAMINATION: GENERAL: No acute distress. HEENT: Normocephalic, atraumatic. CARDIAC: Positive S1 and S2. No murmurs. LUNGS: Clear to auscultation bilaterally. ABDOMEN: Bowel sounds present, soft, nontender. EXTREMITIES: No edema bilaterally. Right wrist stable good radial pulse noted NEUROLOGIC: Cranial nerves 2-12 grossly intact. PSYCHIATRIC: Calm. TELEMETRY: Atrial fibrillation variable response ASSESSMENT: Anterolateral STEMI, slightly delayed presentation with Q waves present on initial EKG, POD 1 from Percutaneous transluminal coronary angioplasty of the proximal to mid left anterior descending artery with placement of 4.5mm x 18 mm [place] drug eluting stent post dilated to 4.6mm by NC under IVUS guidance Atrial fibrillation with rapid ventricular response, new onset on presentation Prediabetes, A1c 6.3%, new diagnosis Hypertension PLAN: At this time nitroglycerin drip will be discontinued. In regards to rate control we will increase carvedilol to 25 mg twice daily as blood pressure can tolerate this. We will also start patient on RASHAD inhibition/ARB. Continue with dual antiplatelet therapy In regards to atrial fibrillation we will discontinue heparin drip and start patient on oral anticoagulation considering unknown duration of atrial fibrillation. In addition I would like to schedule patient for a transesophageal echocardiogram guided direct current cardioversion to be performed prior to dismissal which could lessen the amount of time patient is on triple therapy. We will also initiate sodium glucose transport II inhibitor in this patient with a hemoglobin A1c of 6.3% with a recent MA. patient can be moved out of ICU to a step-down unit. Orders have been placed. All questions have been answered. WAN TREVIZO MD Apr 22, 2024 11:35
[2024-04-22] MEDS ORDERED: MIDAZOLAM HCL 5 MG/ML 2ML VIAL IV PRN (12:00)
[2024-04-22] MEDS: PANTOPrazole 40 MG TAB DR PO SCH (12:49)
--- NOTE | 2024-04-22 16:00 | PN ---
[facility] PROGRESS NOTE Date of Service: Apr 22, 2024 Time of Service: 15:59 SUBJECTIVE: [ 04/20 Patient is 64 years old male with a past medical history of hypertension, hyperlipidemia, who came to emergency department with substernal chest pain starting 6:00 a.m. this morning rated 10/10 intensity. At 1st patient felt like he has a gas problem and he took the Dalia-Bieber but at 7:30 a.m. his left arm started to hurt and became very called to touch and felt numb. Patient knew that there was something wrong so he asked the to drive him to emergency department to [facility]. Patient denies any shortness of breaths, nausea, vomiting or any other discomfort other than stated above. In emergency department patient was found to have anterior lateral ST-elevation with underlying AFib with rapid ventricular response code STEMI was called. Patient was taken to the geophysical laboratory supervisor with and stent was placed to proximal LAD. At this moment patient was evaluated in ICU by nurse practitioner and physician during rounding. At this moment patient continues to be on aspirin atorvastatin Brilinta carvedilol metoprolol drip, normal saline at 100 mL/hour and heparin drip per protocol as requested by solder sprayer. WBC 8.9 hemoglobin 17.1 hematocrit 49.3 platelets 315. Sodium 139 potassium 3.9 chloride 101 CO2 29 BUN 21 creatinine 1.7 GFR 45 random glucose 159 calcium 9.3 CK 153 troponin positive x1 BNP 61. Patient is pending 2D echo and chest x- ray. Patient will be admitted under hospitalist care. ICU, authorizer and solder sprayer consulted pending further evaluation 04/21 patient was seen by nurse practitioner and physician during rounding in room 217 while lying in the bed. Family members/ and son at the bedside. WBC 13.3 which is expected after a procedure. Troponin [id number]. Also patient's CK is 2686. Nurse practitioner asked RN to contact solder sprayer and ask if we can slowly hydrate patient with LR at 75 mL/hour and also taking for solder sprayer regarding the evaluated troponin. Patient was also experiencing some anxiety and palpitation as per patient he said he usually feels like that when his heart rate is above 100. Patient continues to be AFib in low 100s the Meckes that nurse practitioner was able to see was 110 heart rate on monitor. But at this moment patient was denying any palpitations anxiety or chest pain. We will order Xanax 0.25 mg q.6 hours if okay with the solder sprayer. Patient continues to be on heparin drip and nitro. In the meantime we will continue to monitor patient. A.m. labs ] 04/22/24 patient was seen and examined and case discussed with the RN. He denies any chest pain he is status post Anterolateral STEMI, slightly delayed presentation with Q waves present on initial EKG, POD 1 from Percutaneous transluminal coronary angioplasty of the proximal to mid left anterior descending artery with placement of 4.5mm x 18 mm Rafi Pinellas drug eluting stent post dilated to 4.6mm by OR under IVUS guidance REVIEW OF SYSTEMS CONSTITUTIONAL: Denies fevers, chills, or night sweats. No unintentional weight loss reported. NEUROLOGICAL: Denies headache, amaurosis fugax, motor weakness, sensory deficit, vertigo/spinning sensation, gait abnormalities, or tremors. ENT: No hearing loss, otalgia, otorrhea, rhinitis, rhinorrhea, hoarseness, or sore throat. CARDIOVASCULAR: Denies any exertional angina, dyspnea on exertion, orthopnea, paroxysmal nocturnal dyspnea, palpitations, life-threatening arrhythmias, claudication. Complains of chest pain and left hand pain with numbness PULMONARY: Denies any shortness of breath, cough, phlegm/sputum, hemoptysis, pleuritic chest pain. SLEEP: Denies morning headaches, daytime somnolence or napping. Denies difficulty falling asleep, staying asleep, waking from sleep. Denies knowledge of snoring. GASTROINTESTINAL: Denies any type of dysphagia to either liquids or solids. Denies nausea, vomiting, pyrosis, early satiety, abdominal pain, diarrhea, co nstipation, or changes in stool consistency or caliber. Denies coffee-ground emesis, hematemesis, hematochezia, or melanotic stools. GENITOURINARY: Denies frequency, urgency, nocturia, hematuria or incontinence (Storage/Irritative symptoms.) Low urinary stream, straining to void, urinary intermittency or hesitancy, splitting of the voiding stream, terminal dribbling. ENDOCRINOLOGIC: Denies polyuria, polydipsia, polyphagia or heat/cold intolerances. HEMATOLOGIC: Denies thrombophilia/previous clots, or coagulopathy/bleeding disorders. ONCOLOGIC: Denies personal history of malignancy. DERMATOLOGIC: Denies rashes or pruritus. PSYCHIATRIC: Denies any suicidal or homicidal ideation. Denies hallucinations. PHYSICAL EXAM GENERAL APPEARANCE: The patient is awake, alert, and oriented, in no acute car diopulmonary distress. NEUROLOGICAL: Cranial nerves II-XII grossly intact. Motor is 5/5 in bilateral upper and lower extremities proximal to distal. No sensory deficits. HEENT: Face is symmetric. Pupils are equal and reactive. Extraocular movements are intact. NECK: Supple. No JVD. No thyromegaly. No submental, submandibular, pre- /postauricular, occipital or supraclavicular lymphadenopathy. CHEST: Normal chest expansion. No Telemetry. LUNGS: Absence of any rales, rhonchi or any wheezing. CARDIOVASCULAR: Regular. S1 and S2 normal. No appreciable rubs, murmurs or gallops. ABDOMEN: Soft, nontender, and nondistended. There is no rebound, voluntary guarding, or rigidity. : Deferred. No Hart. EXTREMITIES: Non-edematous and not cyanotic. No clubbing. Good capillary refill. SKIN: No skin breakdown. Vital Signs (last 8hr) Date Time Temp Pulse Resp B/P (MAP) Pulse Ox O2 Delivery O2 Flow Rate FiO2 04/22/24 12:15 97.9 04/22/24 11:20 128/72 04/22/24 08:24 147/100 04/22/24 08:23 144/88 04/22/24 08:00 98.1 04/22/24 08:00 97 Room Air* 0 21 LABS: Laboratory: Test 04/22/24 06:40 04/22/24 04:38 04/21/24 21:08 04/21/24 07:13 Range/Units Activated Partial Thromboplast Time 58.4 H 26.3-35.5 SEC White Blood Count 9.4 # 4.8-10.8 K/uL Red Blood Count 3.67 L 4.50-6.20 MIL/uL Hemoglobin 12.1 L 14.0-18.0 g/dL Hematocrit 34.5 L 42-54 % Mean Corpuscular Volume 94.0 79-99 fL Mean Corpuscular Hemoglobin 33.0 27.0-33.0 pg Mean Corpuscular Hemoglobin Concent 35.1 32.0-36.0 g/dL Red Cell Distribution Width 12.8 11.0-15.5 % Platelet Count 212 130-400 K/uL Mean Platelet Volume 10.4 7.5-10.5 fL Immature Granulocyte % (Auto) 0.9 0-1 % Neutrophils (%) (Auto) 70.2 40.0-77.0 % Lymphocytes (%) (Auto) 13.6 L 21.0-51.0 % Monocytes (%) (Auto) 14.0 H 3.0-13.0 % Eosinophils (%) (Auto) 1.1 0.0-8.0 % Basophils (%) (Auto) 0.2 0.0-5.0 % Neutrophils # (Auto) 6.6 1.8-7.7 K/uL Lymphocytes # (Auto) 1.3 1.0-4.8 K/uL Monocytes # (Auto) 1.3 H 0.1-1.0 K/uL Eosinophils # (Auto) 0.10 0.00-0.70 K/uL Basophils # (Auto) 0.02 0.00-0.20 K/uL Absolute Immature Granulocyte (auto 0.08 0-1 K/uL Nucleated Red Blood Cells 0.0 0.0-0.19 % Sodium Level 134 L 136-145 mmol/L Potassium Level 3.8 3.5-5.1 mmol/L Chloride Level 107 101-111 mmol/L Carbon Dioxide Level 21 21-32 mmol/L Blood Urea Nitrogen 13 7-18 mg/dL Creatinine 1.1 0.5-1.3 mg/dL Glomerular Filtration Rate Calc 76 >90 mL/min Random Glucose 141 H 70-105 mg/dL Total Calcium 7.7 L 8.5-10.1 mg/dL Magnesium Level 1.80 1.80-2.40 mg/dL Total Bilirubin 0.9 # 0.2-1.0 mg/dL Aspartate Amino Transf (AST/SGOT) 186 H 10-37 U/L Alanine Aminotransferase (ALT/SGPT) 66 # 12-78 U/L Alkaline Phosphatase 58 50-136 U/L Total Protein 5.8 L 6.0-8.3 g/dL Albumin 2.6 L 3.5-5.0 g/dL Whole Blood Glucose 149 H 70-110 MG/DL Lactic Acid Level 1.8 0.8-2.5 mmol/L Test 04/21/24 04:57 04/21/24 03:15 Range/Units White Cell Morphology Comment See comments Hemoglobin A1c 6.3 H 4.0-6.0 % Estimated Average Glucose (eAG) 134 H 70-126 mg/dL Direct Bilirubin 0.2 0.0-0.3 mg/dL Ammonia 35 H 11-32 umol/L Total Creatine Kinase 2696 #*H 21-232 U/L Troponin I High Sensitivity > [id number] *H 4-75 ng/L B-Type Natriuretic Peptide 280 H 0-100 pg/mL Procalcitonin < 0.05 L 0.05-0.5 ng/mL Influenza Type A Antigen Negative For Type A NEGATIVE Influenza Type B Antigen Negative For Type B NEGATIVE Current Medications Medications (Trade) Dose Ordered Sig/Shala Route PRN Reason Start Time Stop Time Status Last Admin Dose Admin Acetaminophen (TYLenol 325MG TAB) 650 mg Q4H PRN PO MILD PAIN (1-3) 04/20/24 10:30 05/20/24 10:29 04/21/24 16:46 650 MG Acetaminophen (TYLenol 325MG TAB) 650 mg Q6H PRN PO TEMPERATURE GREATER THAN 101.5 04/20/24 10:30 05/20/24 10:29 Al Hydroxide/Mg Hydroxide (MAALox PLUS 30ML) 30 ml Q6H PRN PO INDIGESTION 04/20/24 10:30 05/20/24 10:29 04/20/24 21:32 30 ML Albuterol Sulfate (Proventil 0.083% 2.5mg/3ml) 2.5 mg [id number] PRN IH RESPIRATORY SYMPTOMS 04/20/24 10:30 05/20/24 10:29 Alprazolam (XANax 0.25MG) 0.25 mg BID PRN PO ANXIETY/AGITATION 04/21/24 09:30 05/21/24 09:29 04/22/24 01:46 0.25 MG Apixaban (EliquIS) 5 mg BID PO 04/22/24 21:00 05/22/24 20:59 Aspirin (Aspirin 81mg Chew Tab) 81 mg DAILY PO 04/21/24 09:00 05/21/24 08:59 04/22/24 08:23 81 MG Atorvastatin Calcium (LIPItor 40MG) 40 mg HS PO 04/20/24 21:00 04/21/24 10:01 DC 04/20/24 21:32 40 MG Carvedilol (Coreg 12.5MG) 12.5 mg BID PO 04/21/24 21:00 04/22/24 11:07 DC 04/22/24 08:24 12.5 MG Carvedilol (Coreg 25MG) 25 mg BID PO 04/22/24 21:00 05/22/24 20:59 Carvedilol (Coreg 6.25MG) 6.25 mg BID PO 04/20/24 17:30 04/21/24 14:56 DC 04/21/24 08:07 6.25 MG Dextrose (D50w) 50 ml AD PRN IV HYPOGLYCEMIA PROTOCOL 04/20/24 10:30 05/20/24 10:29 Diphenhydramine HCl (BENAdryl CAP) 25 mg Q4H PRN PO MILD ITCHING/RASH 04/20/24 10:30 05/20/24 10:29 Empaglifozin (Jardiance 25mg) 25 mg DAILY PO 04/23/24 09:00 05/23/24 08:59 Eptifibatide 100 ml @ 0 mls/hr PROTOCOL IV 04/20/24 11:00 04/21/24 04:59 DC 04/20/24 22:26 15.2 MLS/HR Famotidine (Pepcid 20mg Vial) 20 mg BID PRN IV NAUSEA/VOMITING 04/20/24 10:30 04/20/24 10:19 DC Fentanyl Citrate (FENTanyl CITRate PF 50 MCG/ 1 ML 2ML VIAL) 100 mcg AD PRN IVP SEDATION 04/22/24 12:00 Glucagon (Glucagon 1mg Kit) 1 mg AD PRN IM HYPOGLYCEMIA PROTOCOL 04/20/24 10:30 05/20/24 10:29 Guaifenesin/ Dextromethorphan (RobiTUSSin DM 200/20MG 10ML) 10 ml Q4H PRN PO COUGH 04/20/24 10:30 05/20/24 10:29 Heparin Sodium/ Dextrose 250 ml @ 0 mls/hr PROTOCOL IV 04/20/24 09:30 04/22/24 11:07 DC 04/21/24 14:31 10.45 MLS/HR Insulin Human Regular (humuLIN R 100 UNIT/ML 3ML) INSULIN SLIDING SCAL... ACHS SQ 04/20/24 11:30 05/20/24 11:29 04/21/24 12:03 2 UNIT Ipratropium [place] (AtrovENT UD) 0.5 mg [id number] IH 04/20/24 12:00 04/22/24 11:06 DC Ipratropium [place] (AtrovENT UD) 0.5 mg [id number] PRN IH SHORTNESS OF BREATH 04/22/24 11:30 05/20/24 11:59 Lactulose (Constulose 20gm/ 30ml Udcup) 20 gm BID PRN PO CONSTIPATION 04/20/24 10:30 05/20/24 10:29 Losartan Potassium (CozAAR 50 mg TAB) 50 mg DAILY PO 04/22/24 10:30 05/22/24 10:29 04/22/24 11:19 50 MG Magnesium Sulfate 50 ml @ 0 mls/hr PROTOCOL PRN IV other 04/20/24 10:30 05/20/24 10:29 04/22/24 06:36 25 MLS/HR Metoprolol Tartrate (loprESSOR) 5 mg Q4H PRN IV INCREASED HEART RATE 04/21/24 13:00 05/21/24 12:59 04/21/24 18:20 5 MG Metoprolol Tartrate (loprESSOR) 5 mg Q5M PRN IV Heart rate greater than 110 04/20/24 11:00 04/21/24 12:03 DC 04/21/24 12:03 5 MG Midazolam HCl (Versed) 5 mg ONCE PRN IV SEDATION 04/22/24 12:00 Nitroglycerin (Nitrostat) 0.4 mg PROTOCOL PRN SL CHEST PAIN 04/20/24 10:30 05/20/24 10:29 04/20/24 17:02 0.4 MG Nitroglycerin/ Dextrose 250 ml @ 0 mls/hr PROTOCOL IV 04/20/24 11:00 05/20/24 10:59 04/22/24 08:23 30 MLS/HR Ondansetron HCl (zoFRAN 4MG INJ) 4 mg Q6H PRN IV NAUSEA/VOMITING 04/20/24 10:30 05/20/24 10:29 04/21/24 13:02 4 MG Pantoprazole Sodium (PROTonix 40MG TAB) 40 mg DAILY PO 04/22/24 12:00 05/22/24 11:59 04/22/24 12:49 40 MG Potassium Chloride 100 ml @ 100 mls/hr AD PRN IV POTASSIUM PROTOCOL 04/21/24 08:00 05/21/24 07:59 Potassium Chloride (K-Dur/Klor-Con 20meq) 20 meq AD PRN PO POTASSIUM PROTOCOL 04/21/24 08:00 05/21/24 07:59 04/22/24 06:35 20 MEQ Potassium Chloride (KCl 10% Elixir 20meq/15ml) 20 meq AD PRN PO POTASSIUM PROTOCOL 04/21/24 08:00 05/21/24 07:59 Sodium Chloride 1,000 ml @ 75 mls/hr [id number] IV 04/21/24 09:30 05/21/24 09:29 04/22/24 12:49 75 MLS/HR Sodium Chloride 1,000 ml @ 100 mls/hr Q10H IV 04/20/24 11:00 04/20/24 16:59 DC Ticagrelor (BRILinta) 90 mg BID PO 04/20/24 21:00 05/20/24 20:59 04/22/24 08:23 90 MG Ticagrelor (BRILinta) 180 mg ONCE PO 04/20/24 09:30 04/20/24 09:26 DC Zolpidem Tartrate (AmbIEN) 5 mg HS PRN PO INSOMNIA 04/20/24 10:30 05/20/24 10:29 04/20/24 22:42 5 MG DIAGNOSTICS / RADIOLOGY: [ ] ASSESSMENT: [ Acute STEMI, code STEMI called in ER POA S/p left heart catheterization 04/20/2024 placement on stent proximal LAD with POA S/p [facility] s/p symptomatic severe hypotension requiring cardiac drip POA Emergency hypertension, prior C POA New onset of AFib RVR POA Acute on chronic kidney disease POA Hypertroponinemia POA Hyperlipidemia POA ] PLAN: [ Admit to: ICU Consults: ICU, authorizer, solder sprayer Antibiotics: None at this moment Tests: 2D echo, Drips nitroglycerin, heparin NEURO: Minimize central acting medications as possible. Fall Precautions. Well lighted room through the day and minimize interruptions through the night to prevent acute delirium. PULMONARY: Chest x-ray p mild pulmonary infiltrate pulmonary vascular congestion and pneumonitis V/Q scan pending Supplemental 02 as needed BiPAP as necessary, for respiratory distress Titrate Fio2 to keep Spo2 > or = 90% DuoNebs and CPT as needed IS hourly while awake for pulmonary hygiene Out of bed to chair as tolerated VAP Bundle Maintain aspiration precautions at all times CARDIOVASCULAR: [employer] Drawer consultation s/p left heart catheterization stent placement proximal LAD through right wrist radial 2D echo pending New onset of AFib patient on metoprolol at this moment Follow hemodynamics. Vital signs per facility protocol GI & NUTRITION: Continue nutritional support Aspirations precautions Prokinetic agents and laxatives as needed KIDNEYS & ELECTROLYTES: Strict monitoring of intake and output Daily weights Avoid nephrotoxic agents Monitor electrolytes and replace as needed Goal urine output of 30mL/hr or 0.5mL/kg/hr Medications to be dosed according to renal function. Avoid contrast if possible ENDOCRINE: Maintain blood glucose between 100-180 at all times. Insulin sliding scale for blood glucose management Hypoglycemia and hyperglycemia protocol in place INFECTIOUS DISEASE: Trend temperature, WBC and procalcitonin level Follow cultures, deescalate antibiotics as soon as possible. Panculture if new onset fever HEMATOLOGY & COAGULATION: Monitor H&H. Keep Hgb > 7 Transfuse 1 unit of PRBC for Hgb < 7 Transfuse 1 pack of platelets of platelets < 20, 000 Watch for any signs and symptoms of bleeding SKIN: Pressure ulcer prevention per facility protocol Specialty mattress as needed Treatment plan discussed with patient and family at the bedside Medications to be reconciled once obtained by patient and/or family and available to be reconciled in computer p.r.n. medication for pain nausea and vomiting Questions were answered We will continue to monitor the patient closely Test Operator for disposition Rehab: PT/OT GI: PPI DVT: SCD's Code Status: Full Resuscitation Disposition: TBD Prognosis: Guarded] YANDEL VELEZ MD Apr 22, 2024 16:00
[2024-04-22] MEDS: APIXaban 5 MG TABLET PO SCH (22:02)
[2024-04-22] MEDS: carVEDIlol 25 MG TABLET PO SCH (22:04)
[2024-04-23 08:00] VITALS: BP 109/67; PULSE 87; RESP 32; TEMP 99; O2SAT 97
[2024-04-23] MEDS: EMPAGLIFLOZIN 25MG TABLET PO SCH (08:28)
[2024-04-23 10:15] VITALS: PULSE 90; RESP 18; O2SAT 95; O2SAT 97
[2024-04-23 10:29] LABS: HEMATOCRIT 41.2 % (42-54); MEAN CORPUSCULAR HEMOGLOBIN 33.1 pg (27.0-33.0); MEAN CORPUSCULAR VOLUME 94.7 fL (79-99); RED BLOOD CELL COUNT(AUTO) 4.35 MIL/uL (4.50-6.20); WHITE BLOOD COUNT (AUTO) 12.6 K/uL (4.8-10.8)
[2024-04-23 10:46] LABS: CREATININE 1.4 mg/dL (0.5-1.3); POTASSIUM 4.3 mmol/L (3.5-5.1)
[2024-04-23 10:51] LABS: BILIRUBIN,TOTAL 1.2 mg/dL (0.2-1.0); TOTAL PROTEIN, SERUM 7.1 g/dL (6.0-8.3)
[2024-04-23 12:00] VITALS: BP 132/66; PULSE 85; RESP 19; TEMP 97.7
--- NOTE | 2024-04-23 14:05 | NUR ---
TRANSFER REPORT GIVEN TO DAVID AQUINO, PT TRANSFERRED TO ROOM 221 VIA W/C. NO DISTRESS NOTED AT THIS TIME. PT'S BLANCA NOTIFIED OF TRANSFER.
--- NOTE | 2024-04-23 15:09 | PN ---
[facility] PROGRESS NOTE Date of Service: Apr 23, 2024 Time of Service: 15:08 SUBJECTIVE: [ 04/20 Patient is 64 years old male with a past medical history of hypertension, hyperlipidemia, who came to emergency department with substernal chest pain starting 6:00 a.m. this morning rated 10/10 intensity. At 1st patient felt like he has a gas problem and he took the Dalia-Haugan but at 7:30 a.m. his left arm started to hurt and became very called to touch and felt numb. Patient knew that there was something wrong so he asked the to drive him to emergency department to [facility]. Patient denies any shortness of breaths, nausea, vomiting or any other discomfort other than stated above. In emergency department patient was found to have anterior lateral ST-elevation with underlying AFib with rapid ventricular response code STEMI was called. Patient was taken to the [facility] with and stent was placed to proximal LAD. At this moment patient was evaluated in ICU by nurse practitioner and physician during rounding. At this moment patient continues to be on aspirin atorvastatin Brilinta carvedilol metoprolol drip, normal saline at 100 mL/hour and heparin drip per protocol as requested by pneumatic tube fitter. WBC 8.9 hemoglobin 17.1 hematocrit 49.3 platelets 315. Sodium 139 potassium 3.9 chloride 101 CO2 29 BUN 21 creatinine 1.7 GFR 45 random glucose 159 calcium 9.3 CK 153 troponin positive x1 BNP 61. Patient is pending 2D echo and chest x- ray. Patient will be admitted under hospitalist care. ICU, throat cutter and pneumatic tube fitter consulted pending further evaluation 04/21 patient was seen by nurse practitioner and physician during rounding in room 217 while lying in the bed. Family members/ and son at the bedside. WBC 13.3 which is expected after a procedure. Troponin [id number]. Also patient's CK is 2686. Nurse practitioner asked RN to contact pneumatic tube fitter and ask if we can slowly hydrate patient with LR at 75 mL/hour and also taking for pneumatic tube fitter regarding the evaluated troponin. Patient was also experiencing some anxiety and palpitation as per patient he said he usually feels like that when his heart rate is above 100. Patient continues to be AFib in low 100s the Meckes that nurse practitioner was able to see was 110 heart rate on monitor. But at this moment patient was denying any palpitations anxiety or chest pain. We will order Xanax 0.25 mg q.6 hours if okay with the pneumatic tube fitter. Patient continues to be on heparin drip and nitro. In the meantime we will continue to monitor patient. A.m. labs ] 04/22/24 patient was seen and examined and case discussed with the RN. He denies any chest pain he is status post Anterolateral STEMI, slightly delayed presentation with Q waves present on initial EKG, POD 1 from Percutaneous transluminal coronary angioplasty of the proximal to mid left anterior descending artery with placement of 4.5mm x 18 mm [place] drug eluting stent post dilated to 4.6mm by NC under IVUS guidance 04/23/34 patient seen and examined. Case discussed with the RN. He denies any chest pain or shortness for breath. He is likely to be scheduled for CORDELL cardioversion tomorrow REVIEW OF SYSTEMS CONSTITUTIONAL: Denies fevers, chills, or night sweats. No unintentional weight loss reported. NEUROLOGICAL: Denies headache, amaurosis fugax, motor weakness, sensory def icit, vertigo/spinning sensation, gait abnormalities, or tremors. ENT: No hearing loss, otalgia, otorrhea, rhinitis, rhinorrhea, hoarseness, or sore throat. CARDIOVASCULAR: Denies any exertional angina, dyspnea on exertion, orthopnea, paroxysmal nocturnal dyspnea, palpitations, life-threatening arrhythmias, claudication. Complains of chest pain and left hand pain with numbness PULMONARY: Denies any shortness of breath, cough, phlegm/sputum, hemoptysis, pleuritic chest pain. SLEEP: Denies morning headaches, daytime somnolence or napping. Denies difficulty falling asleep, staying asleep, waking from sleep. Denies knowledge of snoring. GASTROINTESTINAL: Denies any type of dysphagia to either liquids or solids. Denies nausea, vomiting, pyrosis, early satiety, abdominal pain, diarrhea, constipation, or changes in stool consistency or caliber. Denies coffee-ground emesis, hematemesis, hematochezia, or melanotic stools. GENITOURINARY: Denies frequency, urgency, nocturia, hematuria or incontinence (Storage/Irritative symptoms.) Low urinary stream, straining to void, urinary intermittency or hesitancy, splitting of the voiding stream, terminal dribbling. ENDOCRINOLOGIC: Denies polyuria, polydipsia, polyphagia or heat/cold intolerances. HEMATOLOGIC: Denies thrombophilia/previous clots, or coagulopathy/bleeding disorders. ONCOLOGIC: Denies personal history of malignancy. DERMATOLOGIC: Denies rashes or pruritus. PSYCHIATRIC: Denies any suicidal or homicidal ideation. Denies hallucinations. PHYSICAL EXAM GENERAL APPEARANCE: The patient is awake, alert, and oriented, in no acute cardiopulmonary distress. NEUROLOGICAL: Cranial nerves II-XII grossly intact. Motor is 5/5 in bilateral upper and lower extremities proximal to distal. No sensory deficits. HEENT: Face is symmetric. Pupils are equal and reactive. Extraocular movements are intact. NECK: Supple. No JVD. No thyromegaly. No submental, submandibular, pre-/postauricular, occipital or supraclavicular lymphadenopathy. CHEST: Normal chest expansion. No Telemetry. LUNGS: Absence of any rales, rhonchi or any wheezing. CARDIOVASCULAR: Regular. S1 and S2 normal. No appreciable rubs, murmurs or gallops. ABDOMEN: Soft, nontender, and nondistended. There is no rebound, voluntary guarding, or rigidity. : Deferred. No Hart. EXTREMITIES: Non-edematous and not cyanotic. No clubbing. Good capillary refill. SKIN: No skin breakdown. Vital Signs (last 8hr) Date Time Temp Pulse Resp B/P (MAP) Pulse Ox O2 Delivery O2 Flow Rate FiO2 04/23/24 12:00 97.7 85 19 132/66 97 Room Air 04/23/24 10:15 90 18 N/A Room Air 21 04/23/24 08:28 109/67 04/23/24 08:00 97 Room Air* 0 21 04/23/24 08:00 99.0 87 32 109/67 95 Room Air LABS: Laboratory: Test 04/23/24 10:20 04/23/24 07:22 04/22/24 06:40 04/22/24 04:38 Range/Units White Blood Count 12.6 H 4.8-10.8 K/uL Red Blood Count 4.35 L 4.50-6.20 MIL/uL Hemoglobin 14.4 14.0-18.0 g/dL Hematocrit 41.2 L 42-54 % Mean Corpuscular Volume 94.7 79-99 fL Mean Corpuscular Hemoglobin 33.1 H 27.0-33.0 pg Mean Corpuscular Hemoglobin Concent 35.0 32.0-36.0 g/dL Red Cell Distribution Width 13.0 11.0-15.5 % Platelet Count 264 130-400 K/uL Mean Platelet Volume 10.3 7.5-10.5 fL Nucleated Red Blood Cells 0.0 0.0-0.19 % Sodium Level 133 L 136-145 mmol/L Potassium Level 4.3 3.5-5.1 mmol/L Chloride Level 101 101-111 mmol/L Carbon Dioxide Level 25 21-32 mmol/L Blood Urea Nitrogen 17 7-18 mg/dL Creatinine 1.4 H 0.5-1.3 mg/dL Glomerular Filtration Rate Calc 57 >90 mL/min Random Glucose 135 H 70-105 mg/dL Total Calcium 8.6 8.5-10.1 mg/dL Magnesium Level 2.00 1.80-2.40 mg/dL Total Bilirubin 1.2 H 0.2-1.0 mg/dL Aspartate Amino Transf (AST/SGOT) 78 H 10-37 U/L Alanine Aminotransferase (ALT/SGPT) 66 12-78 U/L Alkaline Phosphatase 76 50-136 U/L Total Protein 7.1 6.0-8.3 g/dL Albumin 3.0 L 3.5-5.0 g/dL Whole Blood Glucose 116 H 70-110 MG/DL Activated Partial Thromboplast Time 58.4 H 26.3-35.5 SEC Immature Granulocyte % (Auto) 0.9 0-1 % Neutrophils (%) (Auto) 70.2 40.0-77.0 % Lymphocytes (%) (Auto) 13.6 L 21.0-51.0 % Monocytes (%) (Auto) 14.0 H 3.0-13.0 % Eosinophils (%) (Auto) 1.1 0.0-8.0 % Basophils (%) (Auto) 0.2 0.0-5.0 % Neutrophils # (Auto) 6.6 1.8-7.7 K/uL Lymphocytes # (Auto) 1.3 1.0-4.8 K/uL Monocytes # (Auto) 1.3 H 0.1-1.0 K/uL Eosinophils # (Auto) 0.10 0.00-0.70 K/uL Basophils # (Auto) 0.02 0.00-0.20 K/uL Absolute Immature Granulocyte (auto 0.08 0-1 K/uL Current Medications Medications (Trade) Dose Ordered Sig/Shala Route PRN Reason Start Time Stop Time Status Last Admin Dose Admin Acetaminophen (TYLenol 325MG TAB) 650 mg Q4H PRN PO MILD PAIN (1-3) 04/20/24 10:30 05/20/24 10:29 04/21/24 16:46 650 MG Acetaminophen (TYLenol 325MG TAB) 650 mg Q6H PRN PO TEMPERATURE GREATER THAN 101.5 04/20/24 10:30 05/20/24 10:29 Al Hydroxide/Mg Hydroxide (MAALox PLUS 30ML) 30 ml Q6H PRN PO INDIGESTION 04/20/24 10:30 05/20/24 10:29 04/20/24 21:32 30 ML Albuterol Sulfate (Proventil 0.083% 2.5mg/3ml) 2.5 mg [id number] PRN IH RESPIRATORY SYMPTOMS 04/20/24 10:30 05/20/24 10:29 Alprazolam (XANax 0.25MG) 0.25 mg BID PRN PO ANXIETY/AGITATION 04/21/24 09:30 05/21/24 09:29 04/22/24 01:46 0.25 MG Apixaban (EliquIS) 5 mg BID PO 04/22/24 21:00 05/22/24 20:59 04/23/24 08:27 5 MG Aspirin (Aspirin 81mg Chew Tab) 81 mg DAILY PO 04/21/24 09:00 05/21/24 08:59 04/23/24 08:29 81 MG Atorvastatin Calcium (LIPItor 40MG) 40 mg HS PO 04/20/24 21:00 04/21/24 10:01 DC 04/20/24 21:32 40 MG Carvedilol (Coreg 12.5MG) 12.5 mg BID PO 04/21/24 21:00 04/22/24 11:07 DC 04/22/24 08:24 12.5 MG Carvedilol (Coreg 25MG) 25 mg BID PO 04/22/24 21:00 05/22/24 20:59 04/23/24 08:28 25 MG Carvedilol (Coreg 6.25MG) 6.25 mg BID PO 04/20/24 17:30 04/21/24 14:56 DC 04/21/24 08:07 6.25 MG Dextrose (D50w) 50 ml AD PRN IV HYPOGLYCEMIA PROTOCOL 04/20/24 10:30 05/20/24 10:29 Diphenhydramine HCl (BENAdryl CAP) 25 mg Q4H PRN PO MILD ITCHING/RASH 04/20/24 10:30 05/20/24 10:29 Empaglifozin (Jardiance 25mg) 25 mg DAILY PO 04/23/24 09:00 05/23/24 08:59 04/23/24 08:28 25 MG Eptifibatide 100 ml @ 0 mls/hr PROTOCOL IV 04/20/24 11:00 04/21/24 04:59 DC 04/20/24 22:26 15.2 MLS/HR Famotidine (Pepcid 20mg Vial) 20 mg BID PRN IV NAUSEA/VOMITING 04/20/24 10:30 04/20/24 10:19 DC Fentanyl Citrate (FENTanyl CITRate PF 50 MCG/ 1 ML 2ML VIAL) 100 mcg AD PRN IVP SEDATION 04/22/24 12:00 Glucagon (Glucagon 1mg Kit) 1 mg AD PRN IM HYPOGLYCEMIA PROTOCOL 04/20/24 10:30 05/20/24 10:29 Guaifenesin/ Dextromethorphan (RobiTUSSin DM 200/20MG 10ML) 10 ml Q4H PRN PO COUGH 04/20/24 10:30 05/20/24 10:29 Heparin Sodium/ Dextrose 250 ml @ 0 mls/hr PROTOCOL IV 04/20/24 09:30 04/22/24 11:07 DC 04/21/24 14:31 10.45 MLS/HR Insulin Human Regular (humuLIN R 100 UNIT/ML 3ML) INSULIN SLIDING SCAL... ACHS SQ 04/20/24 11:30 05/20/24 11:29 04/21/24 12:03 2 UNIT Ipratropium [place] (AtrovENT UD) 0.5 mg [id number] IH 04/20/24 12:00 04/22/24 11:06 DC Ipratropium [place] (AtrovENT UD) 0.5 mg [id number] PRN IH SHORTNESS OF BREATH 04/22/24 11:30 05/20/24 11:59 Lactulose (Constulose 20gm/ 30ml Udcup) 20 gm BID PRN PO CONSTIPATION 04/20/24 10:30 05/20/24 10:29 Losartan Potassium (CozAAR 50 mg TAB) 50 mg DAILY PO 04/22/24 10:30 05/22/24 10:29 04/23/24 08:27 50 MG Magnesium Sulfate 50 ml @ 0 mls/hr PROTOCOL PRN IV other 04/20/24 10:30 05/20/24 10:29 04/22/24 06:36 25 MLS/HR Metoprolol Tartrate (loprESSOR) 5 mg Q4H PRN IV INCREASED HEART RATE 04/21/24 13:00 05/21/24 12:59 04/21/24 18:20 5 MG Metoprolol Tartrate (loprESSOR) 5 mg Q5M PRN IV Heart rate greater than 110 04/20/24 11:00 04/21/24 12:03 DC 04/21/24 12:03 5 MG Midazolam HCl (Versed) 5 mg ONCE PRN IV SEDATION 04/22/24 12:00 Nitroglycerin (Nitrostat) 0.4 mg PROTOCOL PRN SL CHEST PAIN 04/20/24 10:30 05/20/24 10:29 04/20/24 17:02 0.4 MG Nitroglycerin/ Dextrose 250 ml @ 0 mls/hr PROTOCOL IV 04/20/24 11:00 05/20/24 10:59 04/22/24 08:23 30 MLS/HR Ondansetron HCl (zoFRAN 4MG INJ) 4 mg Q6H PRN IV NAUSEA/VOMITING 04/20/24 10:30 05/20/24 10:29 04/21/24 13:02 4 MG Pantoprazole Sodium (PROTonix 40MG TAB) 40 mg DAILY PO 04/22/24 12:00 05/22/24 11:59 04/23/24 08:28 40 MG Potassium Chloride 100 ml @ 100 mls/hr AD PRN IV POTASSIUM PROTOCOL 04/21/24 08:00 05/21/24 07:59 Potassium Chloride (K-Dur/Klor-Con 20meq) 20 meq AD PRN PO POTASSIUM PROTOCOL 04/21/24 08:00 05/21/24 07:59 04/22/24 06:35 20 MEQ Potassium Chloride (KCl 10% Elixir 20meq/15ml) 20 meq AD PRN PO POTASSIUM PROTOCOL 04/21/24 08:00 05/21/24 07:59 Sodium Chloride 1,000 ml @ 75 mls/hr [id number] IV 04/21/24 09:30 04/23/24 11:42 DC 04/22/24 12:49 75 MLS/HR Sodium Chloride 1,000 ml @ 100 mls/hr Q10H IV 04/20/24 11:00 04/20/24 16:59 DC Ticagrelor (BRILinta) 90 mg BID PO 04/20/24 21:00 05/20/24 20:59 04/23/24 08:28 90 MG Ticagrelor (BRILinta) 180 mg ONCE PO 04/20/24 09:30 04/20/24 09:26 DC Zolpidem Tartrate (AmbIEN) 5 mg HS PRN PO INSOMNIA 04/20/24 10:30 05/20/24 10:29 04/20/24 22:42 5 MG DIAGNOSTICS / RADIOLOGY: [ ] ASSESSMENT: [ Acute STEMI, code STEMI called in ER POA S/p left heart catheterization 04/20/2024 placement on stent proximal LAD with POA S/p [facility] s/p symptomatic severe hypotension requiring cardiac drip POA Emergency hypertension, prior [facility] POA New onset of AFib RVR POA Acute on chronic kidney disease POA Hypertroponinemia POA Hyperlipidemia POA ] PLAN: [ Admit to: ICU Consults: ICU, throat cutter, pneumatic tube fitter Antibiotics: None at this moment Tests: 2D echo, Drips nitroglycerin, heparin NEURO: Minimize central acting medications as possible. Fall Precautions. Well lighted room through the day and minimize interruptions through the night to prevent acute delirium. PULMONARY: Chest x-ray p mild pulmonary infiltrate pulmonary vascular congestion and pneumonitis V/Q scan pending Supplemental 02 as needed BiPAP as necessary, for respiratory distress Titrate Fio2 to keep Spo2 > or = 90% DuoNebs and CPT as needed IS hourly while awake for pulmonary hygiene Out of bed to chair as tolerated VAP Bundle Maintain aspiration precautions at all times CARDIOVASCULAR: Distribution District Supervisor consultation s/p left heart catheterization stent placement proximal LAD through right wrist radial 2D echo pending New onset of AFib patient on metoprolol at this moment Follow hemodynamics. Vital signs per facility protocol GI & NUTRITION: Continue nutritional support Aspirations precautions Prokinetic agents and laxatives as needed KIDNEYS & ELECTROLYTES: Strict monitoring of intake and output Daily weights Avoid nephrotoxic agents Monitor electrolytes and replace as needed Goal urine output of 30mL/hr or 0.5mL/kg/hr Medications to be dosed according to renal function. Avoid contrast if possible ENDOCRINE: Maintain blood glucose between 100-180 at all times. Insulin sliding scale for blood glucose management Hypoglycemia and hyperglycemia protocol in place INFECTIOUS DISEASE: Trend temperature, WBC and procalcitonin level Follow cultures, deescalate antibiotics as soon as possible. Panculture if new onset fever HEMATOLOGY & COAGULATION: Monitor H&H. Keep Hgb > 7 Transfuse 1 unit of PRBC for Hgb < 7 Transfuse 1 pack of platelets of platelets < 20, 000 Watch for any signs and symptoms of bleeding SKIN: Pressure ulcer prevention per facility protocol Specialty mattress as needed Treatment plan discussed with patient and family at the bedside Medications to be reconciled once obtained by patient and/or family and available to be reconciled in computer p.r.n. medication for pain nausea and vomiting Questions were answered We will continue to monitor the patient closely Manager Labor Delivery for disposition Rehab: PT/OT GI: PPI DVT: SCD's Code Status: Full Resuscitation Disposition: TBD Prognosis: Guarded] YANDEL VELEZ MD Apr 23, 2024 15:09
[2024-04-23 16:07] VITALS: BP 112/85; PULSE 67; RESP 18; TEMP 99
--- NOTE | 2024-04-23 16:37 | HMCSR ---
APPROVED REPORT EXAM: Two-dimensional and M-mode echocardiogram with Doppler and color Doppler. INDICATION ICD: ST-elevation AR 2D Dimensions RVDd2.7 cmLVEF(%)43.9 (>50%)LVED Vol(simp.)68.1 mL IVSd1.6 (0.7-1.1cm)FS(%)21 %LVES Vol(simp.)39.3 mL LVDd4.2 (3.8-5.6cm)LA (2D)4.3 (1.6-4.0cm)LVEF(%, simp.)42 % PWd1.5 (0.7-1.1cm)Ao Root(2D)4.4 (2.0-3.7cm)LA ESV INDEX (BP)39.90 mL/m2 IVSs1.9 cmLVOT diam2.1 (1.8-2.4cm) LVDs3.3 (2.5-4.0cm) PWs1.7 cm Deformation Strain Apical 410.0 % Apical 213.0 % Apical 313.0 % Global Wkjvtx82.0 % M-Mode Dimensions EPSS0.3 cm LA (MM)4.0 (1.6-4.0cm) Ao Root(MM)4.7 (2.0-3.7cm) Aortic Valve AoV VTI0.1 mAo Mean GR2.0 mmHgLVOT VTI0.14 m LENIN (VMAX)3.2 cm2AVA (VTI) 3.2 cm2 Mitral Valve MV E Vmax62.6 cm/sDECEL Wene080 ms MR Max PG20 mmHgP 1/2 T36 ms MVA (PHT)6.0 cm2 TDI E/E' Zbfqcn73.2E/E' Ditflug75.4 Medial E' Peak V2.30 cm/sLateral E' Peak V2.80 cm/s Pulmonary Valve PV Vmax0.7 m/s PV Peak GR1.8 mmHg Tricuspid Valve TR Vmax1.5 m/sRAP (EST) 8 jbNnTOHS86.8 mmHg TR Peak GR8.8 mmHg Left Ventricle The left ventricle is normal in size. The mid/apical anterior, anteroseptal george and apex are severe ly hypokinetic. The apical inferior wall is severely hypokinetic. The other george are grossly normal in function. Moderate concentric left ventricular hypertrophy. Left ventricle systolic function is mo derate to severely depressed, estimated LVEF is 35-40%. Stage III diastolic dysfunction. Right Ventricle The right ventricle is normal size. The right ventricular systolic function is normal. Atria The left atrium is mildly dilated. The right atrium size is normal. Aortic Valve Aortic valve is trileaflet. The leaflets are mildly thickened and calcified. No aortic regurgitation is present. There is no aortic valvular stenosis. Mitral Valve The mitral valve is normal in structure and function. Trace mitral regurgitation. There is no mitral valve stenosis. Tricuspid Valve The tricuspid valve is normal in structure and function. Trace tricuspid regurgitation. RVSP is gross ly normal. Pulmonic Valve Pulmonic valve is not well visualized. Great Vessels The aortic root is normal in size. IVC is not well visualized. Pericardium No pericardial effusion. Other Information Quality : Technically difficult study due to body habitus Conclusion The left atrium is mildly dilated. Moderate concentric left ventricular hypertrophy. The mid/apical anterior, anteroseptal george and apex are severely hypokinetic. The apical inferior wa ll is severely hypokinetic. The other george are grossly normal in function. (the findings are consist ent with a infarct involving a wrap around LAD) Left ventricle systolic function is moderate to severely depressed, estimated LVEF is 35-40%. Stage III diastolic dysfunction. Trace mitral regurgitation. Trace tricuspid regurgitation. RVSP is grossly normal. No pericardial effusion.
[2024-04-23] MEDS: LACTULOSE 20 GM/30 ML UDCUP PO PRN (17:22)
[2024-04-23 19:15] VITALS: O2SAT 96
[2024-04-23 20:00] VITALS: BP 127/72; PULSE 89; RESP 18; TEMP 98.1
[2024-04-23] MEDS: SACUBITRIL/VALSARTAN 1 EACH TABLET PO SCH (21:14)
--- NOTE | 2024-04-23 21:32 | PN ---
Cardiology Progress Note Date of Service: 04/23/2024 Attending Care Companion: Dr. Andrea Tovar Primary Care Companion: Dr. Sheree Bruno Reason for Consult: ACS-STEMI Problem List: -ACS-STEMI s/p LHC/coronary angiogram done on 04/20/[address] Bruno which identified 100% thrombotic occlusion (culprit lesion), 90-95% stenosis ostial D2, 10-20% stenosis proximal Ramus, 20% stenosis in the proximal LCx, 30% stenosis in the proximal RCA, 30-40% stenosis in the mid RCA s/p successful PCI with ANNITA placement (MOF 4.5x18 mm) done in the proximal-mid LAD -Acute LV systolic dysfunction (LVEF: 35-40% by echo done 04/21/2023) -New onset atrial fibrillation with RVR -HTN -HLP -DM2 -Elevated LFTs -Obesity Subjective: This is a 64y/o male who was seen and evaluated at the bedside today. The patient denies any active complaints including chest pain, chest pressure, palpitations, or shortness of breath. As per the nurse, there were on overnight events. Vitals/Labs Vital Signs Date Time Temp Pulse Resp B/P (MAP) Pulse Ox O2 Delivery O2 Flow Rate FiO2 04/23/24 21:14 127/72 04/23/24 20:00 98.1 89 18 96 Room Air 04/23/24 19:15 0 21 General: Awake and alert. No acute distress. HEENT: Normocephalic, atraumatic. EOMI. Oral mucosa was moist. Neck: No masses, JVD, or carotid bruits. Lungs: No respiratory distress. SCM. Bilateral air entry. Clear to auscultation bilaterally. Cardio: Regular rate, irregular rhythm. Abdomen: Soft, nontender, nondistended. No organomegaly. Normoactive bowel sounds x 4 quadrants. Extremities. No edema, clubbing, or cyanosis. +2 pulses noted throughout. Neuro: Cranial nerves II through XII are grossly intact. No focal deficits identified. Laboratory Tests 04/23/24 10:20 Assessment: -ACS-STEMI s/p LHC/coronary angiogram done on 04/20/[address] Bruno which identified 100% thrombotic occlusion (culprit lesion), 90-95% stenosis ostial D2, 10-20% stenosis proximal Ramus, 20% stenosis in the proximal LCx, 30% stenosis in the proximal RCA, 30-40% stenosis in the mid RCA s/p successful PCI with ANNITA placement (MOF 4.5x18 mm) done in the proximal-mid LAD -Acute LV systolic dysfunction (LVEF: 35-40% by echo done 04/21/2023) -New onset atrial fibrillation with RVR -HTN -HLP -DM2 -Elevated LFTs -Obesity Plan: 1. ACS-STEMI s/p LHC/coronary angiogram done on 04/20/[address] Bruno which identified 100% thrombotic occlusion (culprit lesion), 90-95% stenosis ostial D2, 10-20% stenosis proximal Ramus, 20% stenosis in the proximal LCx, 30% stenosis in the proximal RCA, 30-40% stenosis in the mid RCA s/p successful PCI with ANNITA placement (MOF 4.5x18 mm) done in the proximal-mid LAD -Stable -The patient will continue on aspirin 81 mg daily, ticagrelor 90 mg BID, and Entresto 24/26 mg BID, statin therapy remains on hold due to her elevated LFTs. -The patient will remain on triple therapy for 1 month, then aspirin should be discontinued. 2. Acute LV systolic dysfunction (LVEF: 35-40% by echo done 04/21/2023) -BNP: 280 (04/21/2024) -In order to optimize medical therapy, we will stop carvedilol and losartan and will instead started the patient on metoprolol succinate 100 mg daily (to provide better HR control ), Entresto 24/26 mg BID, and spironolactone 12.5 mg daily, and he will continue on Jardiance 25 mg daily. -Please record strict I/Os, daily weights, and restrict fluids to less than 2.0L/day 3. New onset atrial fibrillation with RVR -Substrate: LAD -12H telemetry: Atrial fibrillation, HR range: 76-108 bpm -Currently stable, asymptomatic, and in a controlled ventricular response. -The patient will continue on metoprolol succinate 100 mg daily. -CAHDS2 VASc score: 4 points. The patient will continue on Eliquis 5 mg BID. -Please keep the patient on continuous telemetry monitoring and maintain a potassium > 4.0 and magnesium > 2.0. -The patient will be kept NPO after midnight with tentative plans for a CORDELL with possible DCCV in the AM. ANDREA TOVAR MD Apr 23, 2024 21:32
[2024-04-24] VITALS (8 sets, daily range): BP systolic 97–139; BP diastolic 52–76; PULSE 63–91; RESP 18–20; TEMP 98–98.5; O2SAT 96
[2024-04-24] MEDS: metOPROLol sucCINATE 50 MG TAB.SR.24H PO SCH (09:00)
[2024-04-24] MEDS: SPIRONOLACTONE 25 MG TAB PO SCH (09:00)
--- NOTE | 2024-04-24 11:01 | EKG ---
[facility] Test Date: 2024-04-24 Test Time: 10:52:39 Pat Name: BERTHA BONILLA Department: [facility] Room: 221 1 Gender: M Batch Unloader: GABY : 1960 Requested By: WAN TREVIZO Order Number: [id number] Reading MD: Arturo Cooley Measurements Intervals [place] Rate: 62 P: 48 [place]: 194 QRS: 3 QRSD: 92 T: 94 QT: 440 QTc: 446 Interpretive Statements Normal sinus rhythm Possible Left atrial enlargement Anterior evolving STEMI Septal infarct , age undetermined T wave abnormality, consider lateral ischemia Compared to ECG 04/20/2024 09:00:08 T-wave abnormality now present Possible ischemia now present Atrial fibrillation no longer present Myocardial infarct finding still present Electronically Signed On 04-25-2024 23:25:20 CDT by Arturo Cooley Please click the below link to view image of tracing.
[2024-04-24] MEDS: MIDAZOLAM HCL 1 MG/ML 2ML VIAL ONE ×3 (11:14→11:15)
[2024-04-24] MEDS: LIDOCAINE HCL 2% VISCOUS 15 ML UDCUP ONE (11:16)
[2024-04-24] MEDS: FENTanyl CITRate PF 50 MCG/1 ML 2ML VIAL IVP PRN (11:17)
--- NOTE | 2024-04-24 11:46 | PRN ---
Procedures: Conscious sedation Transesophageal echocardiogram Direct current cardioversion x1 at 120 joules Indications: Hypercoagulable state Atrial fibrillation with rapid ventricular response ST segment elevation myocardial infarction on admission Description: After patient had adequate sedation placed and CORDELL was performed revealing no evidence of left atrial appendage thrombus or clot it was felt patient was a candidate for direct current cardioversion. Patient went on to have 150 joules of synchronized direct current cardioversion took place x1 with congregation of a sinus rhythm. Recommendations: Patient will require triple therapy to include aspirin clopidogrel (or Brilinta) in addition to Eliquis at least for another 4 weeks Outpatient mobile cardiac outpatient telemetry unit to be done under the direction of WAN Murry MD Apr 24, 2024 11:46
--- NOTE | 2024-04-24 12:42 | PN ---
[facility] PROGRESS NOTE Date of Service: Apr 24, 2024 Time of Service: 12:[address] Herron SUBJECTIVE: [ 04/20 Patient is 64 years old male with a past medical history of hypertension, hyperlipidemia, who came to emergency department with substernal chest pain starting 6:00 a.m. this morning rated 10/10 intensity. At 1st patient felt like he has a gas problem and he took the [place] but at 7:30 a.m. his left arm started to hurt and became very called to touch and felt numb. Patient knew that there was something wrong so he asked the to drive him to emergency department to [facility]. Patient denies any shortness of breaths, nausea, vomiting or any other discomfort other than stated above. In emergency department patient was found to have anterior lateral ST-elevation with underlying AFib with rapid ventricular response code STEMI was called. Patient was taken to the construction or leak gang laborer with and stent was placed to proximal LAD. At this moment patient was evaluated in ICU by nurse practitioner and physician during rounding. At this moment patient continues to be on aspirin atorvastatin Brilinta carvedilol metoprolol drip, normal saline at 100 mL/hour and heparin drip per protocol as requested by strip catcher. WBC 8.9 hemoglobin 17.1 hematocrit 49.3 platelets 315. Sodium 139 potassium 3.9 chloride 101 CO2 29 BUN 21 creatinine 1.7 GFR 45 random glucose 159 calcium 9.3 CK 153 troponin positive x1 BNP 61. Patient is pending 2D echo and chest x- ray. Patient will be admitted under hospitalist care. ICU, hand molder meat and strip catcher consulted pending further evaluation 04/21 patient was seen by nurse practitioner and physician during rounding in room 217 while lying in the bed. Family members/ and son at the bedside. WBC 13.3 which is expected after a procedure. Troponin [id number]. Also patient's CK is 2686. Nurse practitioner asked RN to contact strip catcher and ask if we can slowly hydrate patient with LR at 75 mL/hour and also taking for strip catcher regarding the evaluated troponin. Patient was also experiencing some anxiety and palpitation as per patient he said he usually feels like that when his heart rate is above 100. Patient continues to be AFib in low 100s the Meckes that nurse practitioner was able to see was 110 heart rate on monitor. But at this moment patient was denying any palpitations anxiety or chest pain. We will order Xanax 0.25 mg q.6 hours if okay with the strip catcher. Patient continues to be on heparin drip and nitro. In the meantime we will continue to monitor patient. A.m. labs ] 04/22/24 patient was seen and examined and case discussed with the RN. He denies any chest pain he is status post Anterolateral STEMI, slightly delayed presentation with Q waves present on initial EKG, POD 1 from Percutaneous transluminal coronary angioplasty of the proximal to mid left anterior descending artery with placement of 4.5mm x 18 mm [place] drug eluting stent post dilated to 4.6mm by MS under IVUS guidance 04/23/34 patient seen and examined. Case discussed with the RN. He denies any chest pain or shortness for breath. He is likely to be scheduled for CORDELL cardioversion tomorrow 04/24. Patient was seen by nurse practitioner physician during rounding. Patient is pending CORDELL with a possible DCCV with Dr. Pina today. WBC 12.6. We will continue to monitor patient in the meantime. A.m. labs. Replace potassium magnesium per protocol by RN. Once patient will be cleared patient will be going home REVIEW OF SYSTEMS CONSTITUTIONAL: Denies fevers, chills, or night sweats. No unintentional weight loss reported. NEUROLOGICAL: Denies headache, amaurosis fugax, motor weakness, sensory deficit, vertigo/spinning sensation, gait abnormalities, or tremors. ENT: No hearing loss, otalgia, otorrhea, rhinitis, rhinorrhea, hoarseness, or sore throat. CARDIOVASCULAR: Denies any exertional angina, dyspnea on exertion, orthopnea, paroxysmal nocturnal dyspnea, palpitations, life-threatening arrhythmias, claudication. Denies any chest pain and left hand pain with numbness PULMONARY: Denies any shortness of breath, cough, phlegm/sputum, hemoptysis, pleuritic chest pain. SLEEP: Denies morning headaches, daytime somnolence or napping. Denies difficulty falling asleep, staying asleep, waking from sleep. Denies knowledge of snoring. GASTROINTESTINAL: Denies any type of dysphagia to either liquids or solids. Denies nausea, vomiting, pyrosis, early satiety, abdominal pain, diarrhea, constipation, or changes in stool consistency or caliber. Denies coffee-ground emesis, hematemesis, hematochezia, or melanotic stools. GENITOURINARY: Denies frequency, urgency, nocturia, hematuria or incontinence (Storage/Irritative symptoms.) Low urinary stream, straining to void, urinary intermittency or hesitancy, splitting of the voiding stream, terminal dribbling. ENDOCRINOLOGIC: Denies polyuria, polydipsia, polyphagia or heat/cold intoleran corrie. HEMATOLOGIC: Denies thrombophilia/previous clots, or coagulopathy/bleeding disorders. ONCOLOGIC: Denies personal history of malignancy. DERMATOLOGIC: Denies rashes or pruritus. PSYCHIATRIC: Denies any suicidal or homicidal ideation. Denies hallucinations. PHYSICAL EXAM GENERAL APPEARANCE: The patient is awake, alert, and oriented, in no acute cardiopulmonary distress. NEUROLOGICAL: Cranial nerves II-XII grossly intact. Motor is 5/5 in bilateral upper and lower extremities proximal to distal. No sensory deficits. HEENT: Face is symmetric. Pupils are equal and reactive. Extraocular movements are intact. NECK: Supple. No JVD. No thyromegaly. No submental, submandibular, pre- /postauricular, occipital or supraclavicular lymphadenopathy. CHEST: Normal chest expansion. No Telemetry. LUNGS: Absence of any rales, rhonchi or any wheezing. CARDIOVASCULAR: Regular. S1 and S2 normal. No appreciable rubs, murmurs or gallops. ABDOMEN: Soft, nontender, and nondistended. There is no rebound, voluntary guarding, or rigidity. : Deferred. No Hart. EXTREMITIES: Non-edematous and not cyanotic. No clubbing. Good capillary refill. SKIN: No skin breakdown. Vital Signs (last 8hr) Date Time Temp Pulse Resp B/P (MAP) Pulse Ox O2 Delivery O2 Flow Rate FiO2 04/24/24 11:00 98.2 63 20 111/72 96 Room Air 04/24/24 07:00 98.4 77 20 102/68 97 Room Air LABS: Laboratory: Test 04/24/24 11:23 04/23/24 10:20 Range/Units Whole Blood Glucose 124 H 70-110 MG/DL Bedside Glucose Comment Notified Nurse White Blood Count 12.6 H 4.8-10.8 K/uL Red Blood Count 4.35 L 4.50-6.20 MIL/uL Hemoglobin 14.4 14.0-18.0 g/dL Hematocrit 41.2 L 42-54 % Mean Corpuscular Volume 94.7 79-99 fL Mean Corpuscular Hemoglobin 33.1 H 27.0-33.0 pg Mean Corpuscular Hemoglobin Concent 35.0 32.0-36.0 g/dL Red Cell Distribution Width 13.0 11.0-15.5 % Platelet Count 264 130-400 K/uL Mean Platelet Volume 10.3 7.5-10.5 fL Nucleated Red Blood Cells 0.0 0.0-0.19 % Sodium Level 133 L 136-145 mmol/L Potassium Level 4.3 3.5-5.1 mmol/L Chloride Level 101 101-111 mmol/L Carbon Dioxide Level 25 21-32 mmol/L Blood Urea Nitrogen 17 7-18 mg/dL Creatinine 1.4 H 0.5-1.3 mg/dL Glomerular Filtration Rate Calc 57 >90 mL/min Random Glucose 135 H 70-105 mg/dL Total Calcium 8.6 8.5-10.1 mg/dL Magnesium Level 2.00 1.80-2.40 mg/dL Total Bilirubin 1.2 H 0.2-1.0 mg/dL Aspartate Amino Transf (AST/SGOT) 78 H 10-37 U/L Alanine Aminotransferase (ALT/SGPT) 66 12-78 U/L Alkaline Phosphatase 76 50-136 U/L Total Protein 7.1 6.0-8.3 g/dL Albumin 3.0 L 3.5-5.0 g/dL Current Medications Medications (Trade) Dose Ordered Sig/Shala Route PRN Reason Start Time Stop Time Status Last Admin Dose Admin Acetaminophen (TYLenol 325MG TAB) 650 mg Q4H PRN PO MILD PAIN (1-3) 04/20/24 10:30 05/20/24 10:29 04/21/24 16:46 650 MG Acetaminophen (TYLenol 325MG TAB) 650 mg Q6H PRN PO TEMPERATURE GREATER THAN 101.5 04/20/24 10:30 05/20/24 10:29 Al Hydroxide/Mg Hydroxide (MAALox PLUS 30ML) 30 ml Q6H PRN PO INDIGESTION 04/20/24 10:30 05/20/24 10:29 04/20/24 21:32 30 ML Albuterol Sulfate (Proventil 0.083% 2.5mg/3ml) 2.5 mg [id number] PRN IH RESPIRATORY SYMPTOMS 04/20/24 10:30 05/20/24 10:29 Alprazolam (XANax 0.25MG) 0.25 mg BID PRN PO ANXIETY/AGITATION 04/21/24 09:30 05/21/24 09:29 04/22/24 01:46 0.25 MG Apixaban (EliquIS) 5 mg BID PO 04/22/24 21:00 05/22/24 20:59 04/23/24 21:15 5 MG Aspirin (Aspirin 81mg Chew Tab) 81 mg DAILY PO 04/21/24 09:00 05/21/24 08:59 04/23/24 08:29 81 MG Atorvastatin Calcium (LIPItor 40MG) 40 mg HS PO 04/20/24 21:00 04/21/24 10:01 DC 04/20/24 21:32 40 MG Carvedilol (Coreg 12.5MG) 12.5 mg BID PO 04/21/24 21:00 04/22/24 11:07 DC 04/22/24 08:24 12.5 MG Carvedilol (Coreg 25MG) 25 mg BID PO 04/22/24 21:00 04/23/24 23:59 DC 04/23/24 21:14 25 MG Carvedilol (Coreg 6.25MG) 6.25 mg BID PO 04/20/24 17:30 04/21/24 14:56 DC 04/21/24 08:07 6.25 MG Dextrose (D50w) 50 ml AD PRN IV HYPOGLYCEMIA PROTOCOL 04/20/24 10:30 05/20/24 10:29 Diphenhydramine HCl (BENAdryl CAP) 25 mg Q4H PRN PO MILD ITCHING/RASH 04/20/24 10:30 05/20/24 10:29 Empaglifozin (Jardiance 25mg) 25 mg DAILY PO 04/23/24 09:00 05/23/24 08:59 04/23/24 08:28 25 MG Eptifibatide 100 ml @ 0 mls/hr PROTOCOL IV 04/20/24 11:00 04/21/24 04:59 DC 04/20/24 22:26 15.2 MLS/HR Famotidine (Pepcid 20mg Vial) 20 mg BID PRN IV NAUSEA/VOMITING 04/20/24 10:30 04/20/24 10:19 DC Fentanyl Citrate (FENTanyl CITRate PF 50 MCG/ 1 ML 2ML VIAL) 100 mcg AD PRN IVP SEDATION 04/22/24 12:00 04/24/24 11:17 DC 04/24/24 11:17 100 MCG Glucagon (Glucagon 1mg Kit) 1 mg AD PRN IM HYPOGLYCEMIA PROTOCOL 04/20/24 10:30 05/20/24 10:29 Guaifenesin/ Dextromethorphan (RobiTUSSin DM 200/20MG 10ML) 10 ml Q4H PRN PO COUGH 04/20/24 10:30 05/20/24 10:29 Heparin Sodium/ Dextrose 250 ml @ 0 mls/hr PROTOCOL IV 04/20/24 09:30 04/22/24 11:07 DC 04/21/24 14:31 10.45 MLS/HR Insulin Human Regular (humuLIN R 100 UNIT/ML 3ML) INSULIN SLIDING SCAL... ACHS SQ 04/20/24 11:30 05/20/24 11:29 04/23/24 21:19 2 UNIT Ipratropium [place] (AtrovENT UD) 0.5 mg [id number] IH 04/20/24 12:00 04/22/24 11:06 DC Ipratropium [place] (AtrovENT UD) 0.5 mg [id number] PRN IH SHORTNESS OF BREATH 04/22/24 11:30 05/20/24 11:59 Lactulose (Constulose 20gm/ 30ml Udcup) 20 gm BID PRN PO CONSTIPATION 04/20/24 10:30 05/20/24 10:29 04/23/24 17:22 20 GM Losartan Potassium (CozAAR 50 mg TAB) 50 mg DAILY PO 04/22/24 10:30 04/23/24 16:38 DC 04/23/24 08:27 50 MG Magnesium Sulfate 50 ml @ 0 mls/hr PROTOCOL PRN IV other 04/20/24 10:30 05/20/24 10:29 04/22/24 06:36 25 MLS/HR Metoprolol Succinate (TopROL XL) 100 mg DAILY PO 04/24/24 09:00 05/24/24 08:59 Metoprolol Tartrate (loprESSOR) 5 mg Q4H PRN IV INCREASED HEART RATE 04/21/24 13:00 04/24/24 08:22 DC 04/21/24 18:20 5 MG Metoprolol Tartrate (loprESSOR) 5 mg Q5M PRN IV Heart rate greater than 110 04/20/24 11:00 04/21/24 12:03 DC 04/21/24 12:03 5 MG Midazolam HCl (Versed) 5 mg ONCE PRN IV SEDATION 04/22/24 12:00 Nitroglycerin (Nitrostat) 0.4 mg PROTOCOL PRN SL CHEST PAIN 04/20/24 10:30 05/20/24 10:29 04/20/24 17:02 0.4 MG Nitroglycerin/ Dextrose 250 ml @ 0 mls/hr PROTOCOL IV 04/20/24 11:00 04/23/24 16:38 DC 04/22/24 08:23 30 MLS/HR Ondansetron HCl (zoFRAN 4MG INJ) 4 mg Q6H PRN IV NAUSEA/VOMITING 04/20/24 10:30 05/20/24 10:29 04/21/24 13:02 4 MG Pantoprazole Sodium (PROTonix 40MG TAB) 40 mg DAILY PO 04/22/24 12:00 05/22/24 11:59 04/23/24 08:28 40 MG Potassium Chloride 100 ml @ 100 mls/hr AD PRN IV POTASSIUM PROTOCOL 04/21/24 08:00 05/21/24 07:59 Potassium Chloride (K-Dur/Klor-Con 20meq) 20 meq AD PRN PO POTASSIUM PROTOCOL 04/21/24 08:00 05/21/24 07:59 04/22/24 06:35 20 MEQ Potassium Chloride (KCl 10% Elixir 20meq/15ml) 20 meq AD PRN PO POTASSIUM PROTOCOL 04/21/24 08:00 05/21/24 07:59 Sacubitril/ Valsartan (Entresto 24 Mg-26 Mg Tablet) 1 each BID PO 04/23/24 21:00 05/23/24 20:59 04/23/24 21:14 1 EACH Sodium Chloride 1,000 ml @ 75 mls/hr [id number] IV 04/21/24 09:30 04/23/24 11:42 DC 04/22/24 12:49 75 MLS/HR Sodium Chloride 1,000 ml @ 100 mls/hr Q10H IV 04/20/24 11:00 04/20/24 16:59 DC Spironolactone (Aldactone 25mg) 12.5 mg DAILY PO 04/24/24 09:00 05/24/24 08:59 Ticagrelor (BRILinta) 90 mg BID PO 04/20/24 21:00 05/20/24 20:59 04/23/24 21:14 90 MG Ticagrelor (BRILinta) 180 mg ONCE PO 04/20/24 09:30 04/20/24 09:26 DC Zolpidem Tartrate (AmbIEN) 5 mg HS PRN PO INSOMNIA 04/20/24 10:30 05/20/24 10:29 04/20/24 22:42 5 MG DIAGNOSTICS / RADIOLOGY: [ ] ASSESSMENT: [ Acute STEMI, code STEMI called in ER POA S/p left heart catheterization 04/20/2024 placement on stent proximal LAD with POA S/p C s/p symptomatic severe hypotension requiring cardiac drip POA Emergency hypertension, prior LHC POA New onset of AFib RVR POA Acute on chronic kidney disease POA Hypertroponinemia POA Hyperlipidemia POA ] PLAN: [ Admit to: Medical floor Consults: ICU, hand molder meat, strip catcher Antibiotics: None at this moment Tests: Patient is pending CORDELL with possible cardioversion today 04/24/2024 Nitroglycerin and heparin drip discontinued NEURO: Minimize central acting medications as possible. Fall Precautions. Well lighted room through the day and minimize interruptions through the night to prevent acute delirium. PULMONARY: Chest x-ray p mild pulmonary infiltrate pulmonary vascular congestion and pneumonitis V/Q scan negative Supplemental 02 as needed BiPAP as necessary, for respiratory distress Titrate Fio2 to keep Spo2 > or = 90% DuoNebs and CPT as needed IS hourly while awake for pulmonary hygiene Out of bed to chair as tolerated VAP Bundle Maintain aspiration precautions at all times CARDIOVASCULAR: Wool Puller consultation s/p left heart catheterization stent placement proximal LAD through right wrist radial 2D echo EF 35 to 40% stage III diastolic dysfunction Patient is pending CORDELL with a possible DCCV 04/24/[address] Pina New onset of AFib patient on metoprolol at this moment Follow hemodynamics. Vital signs per facility protocol GI & NUTRITION: Continue nutritional support Aspirations precautions Prokinetic agents and laxatives as needed KIDNEYS & ELECTROLYTES: Strict monitoring of intake and output Daily weights Avoid nephrotoxic agents Monitor electrolytes and replace as needed Goal urine output of 30mL/hr or 0.5mL/kg/hr Medications to be dosed according to renal function. Avoid contrast if possible ENDOCRINE: Maintain blood glucose between 100-180 at all times. Insulin sliding scale for blood glucose management Hypoglycemia and hyperglycemia protocol in place INFECTIOUS DISEASE: Trend temperature, WBC and procalcitonin level Follow cultures, deescalate antibiotics as soon as possible. Panculture if new onset fever HEMATOLOGY & COAGULATION: Monitor H&H. Keep Hgb > 7 Transfuse 1 unit of PRBC for Hgb < 7 Transfuse 1 pack of platelets of platelets < 20, 000 Watch for any signs and symptoms of bleeding SKIN: Pressure ulcer prevention per facility protocol Specialty mattress as needed Treatment plan discussed with patient and family at the bedside Medications to be reconciled once obtained by patient and/or family and available to be reconciled in computer p.r.n. medication for pain nausea and vomiting Questions were answered We will continue to monitor the patient closely Air Conditioning Manager for disposition Rehab: PT/OT GI: PPI DVT: SCD's Code Status: Full Resuscitation Disposition: TBD Prognosis: Guarded] ATTESTATION BY PHYSICIAN I have seen and examined the patient. I reviewed the documentation, medical decision making, and treatment plan as noted by the mid-level provider above. I agree with the findings and plan of care. FRED HERRON MD, [facility] [employer] Apr 24, 2024 12:42
[2024-04-24] MEDS: guaiFENesin-DM 200/20MG 10ML PO PRN (12:46)
--- NOTE | 2024-04-24 17:07 | NUR ---
Nutrition consult per NSTEMI Reviewed labs, notes, and medications. Pt pending CORDELL w/ possible DCCV today, on HH, iv fluid, Na 133(L), BG 124(H), elevated bilirubin 1.2, elevated AST 78, A1C 6.3, elevated troponin per chart review. 50%PO intake, wt via standing scale, last BM 04/21/24, no edema, well nourished, radial puncture site, -218 ml balance 04/23/24 per nursing. Pending vit. D and lipid panel. Per research low vitamin D may contribute to insulin resistance + vit. D deficiency may impair wound healing. Recommendations: -Provide HH + 75 gm cho -Monitor PO intake -Encourage PO intake as able -Monitor BM -If no BM >3 days consider stool softener -Monitor electrolytes -Replenish electrolytes per protocol -Monitor wts -Reweigh as able -Order Vit D, vit b-12 labs to rule out deficiencies -Order lipid panel -Provide b-complex QD -Recommend Pt to follow up with PCP -Monitor goals of care RD to follow + available for consult per protocol Addendum: 04/24/24 at [address] Amended: Links added.
--- NOTE | 2024-04-24 17:08 | PN ---
[facility] CARDIOLOGY PROGRESS NOTE Date Patient Seen: Apr 24, 2024 Time of Visit: 17:06 Problem List: Anterolateral STEMI New onset AF with RVR Interval History: s/p CORDELL guided DCCV this morning Physical Examination: GENERAL: [No acute distress.] LUNGS: [Clear breath sounds bilaterally. No wheezes, or rhonchi.] HEART: [regular rate and rhythm. Normal S1 and S2 without murmurs, gallop or rub.] VASC: [Peripheral pulses +2 bilaterally. Right radial artery access site nontender, no hematoma 2+ pulse.] EXT: [No clubbing, cyanosis or edema.] SKIN: [warm, dry.] NEURO: [Awake, alert, and oriented x3. No focal sensory or strength deficits noted.] Laboratory: [ ] Hematology Labs: Test 04/23/24 10:20 Range/Units White Blood Count 12.6 H 4.8-10.8 K/uL Red Blood Count 4.35 L 4.50-6.20 MIL/uL Hemoglobin 14.4 14.0-18.0 g/dL Hematocrit 41.2 L 42-54 % Mean Corpuscular Volume 94.7 79-99 fL Mean Corpuscular Hemoglobin 33.1 H 27.0-33.0 pg Mean Corpuscular Hemoglobin Concent 35.0 32.0-36.0 g/dL Red Cell Distribution Width 13.0 11.0-15.5 % Platelet Count 264 130-400 K/uL Mean Platelet Volume 10.3 7.5-10.5 fL Nucleated Red Blood Cells 0.0 0.0-0.19 % Chemistry Labs: Test 04/24/24 15:39 04/23/24 10:20 Range/Units Whole Blood Glucose 153 H 70-110 MG/DL Bedside Glucose Comment Notified Nurse Sodium Level 133 L 136-145 mmol/L Potassium Level 4.3 3.5-5.1 mmol/L Chloride Level 101 101-111 mmol/L Carbon Dioxide Level 25 21-32 mmol/L Blood Urea Nitrogen 17 7-18 mg/dL Creatinine 1.4 H 0.5-1.3 mg/dL Glomerular Filtration Rate Calc 57 >90 mL/min Random Glucose 135 H 70-105 mg/dL Total Calcium 8.6 8.5-10.1 mg/dL Magnesium Level 2.00 1.80-2.40 mg/dL Total Bilirubin 1.2 H 0.2-1.0 mg/dL Aspartate Amino Transf (AST/SGOT) 78 H 10-37 U/L Alanine Aminotransferase (ALT/SGPT) 66 12-78 U/L Alkaline Phosphatase 76 50-136 U/L Total Protein 7.1 6.0-8.3 g/dL Albumin 3.0 L 3.5-5.0 g/dL Impression and Plan: -ACS-STEMI s/p LHC/coronary angiogram done on 04/20/[address] Bruno which identified 100% thrombotic occlusion (culprit lesion), 90-95% stenosis ostial D2, 10-20% stenosis proximal Ramus, 20% stenosis in the proximal LCx, 30% s tenosis in the proximal RCA, 30-40% stenosis in the mid RCA s/p successful PCI with ANNITA placement (MOF 4.5x18 mm) done in the proximal-mid LAD -Acute LV systolic dysfunction (LVEF: 35-40% by echo done 04/21/2023) -New onset atrial fibrillation with RVR -HTN -HLP -DM2 -Elevated LFTs -Obesity - LDL 108 Plan: 1. ACS-STEMI s/p LHC/coronary angiogram 04/20/2024 with 100% thrombotic occlusion (culprit lesion) to proximal LAD s/p successful PCI with ANNITA placement (MOF 4.5x18 mm) -LFTs have improved. Resume statin. -The patient will remain on triple therapy for 1 month, then aspirin should be discontinued. He should be on H2B or PPI during this time. 2. Acute LV systolic dysfunction (LVEF: 35-40% by echo done 04/21/2023) -BNP: 280 (04/21/2024) -GDMT: metoprolol succinate 100 mg daily (to provide better HR control ), Entresto 24/26 mg BID, and spironolactone 12.5 mg daily, and he will continue on Jardiance 25 mg daily. 3. New onset atrial fibrillation with RVR - metoprolol succinate 100 mg daily. -CAHDS2 VASc score: 4 points. Eliquis 5 mg BID. -S/P CORDELL DCCV on 04/24 HOMA BRUNO DO Apr 24, 2024 17:08
[2024-04-25 00:14] VITALS: BP 109/68; PULSE 68; RESP 18; TEMP 97.8
[2024-04-25 04:24] VITALS: BP 130/89; PULSE 64; RESP 18; TEMP 97.8
[2024-04-25 04:40] LABS: BASOPHILS # (AUTO) 0.03 K/uL (0.00-0.20); BASOPHILS % (AUTO) 0.3 % (0.0-5.0); EOSINOPHILS # (AUTO) 0.16 K/uL (0.00-0.70); EOSINOPHILS % (AUTO) 1.6 % (0.0-8.0); HEMATOCRIT 41.7 % (42-54); IMMATURE GRANULOCYTE ABSOLUTE 0.07 K/uL (0-1); LYMPHOCYTES # (AUTO) 1.2 K/uL (1.0-4.8); LYMPHOCYTES % (AUTO) 12.1 % (21.0-51.0); MEAN CORPUSCULAR HEMOGLOBIN 32.8 pg (27.0-33.0); MEAN CORPUSCULAR HGB CONC 34.5 g/dL (32.0-36.0); MONOCYTES # (AUTO) 1.4 K/uL (0.1-1.0); MONOCYTES % (AUTO) 14.5 % (3.0-13.0); NEUTROPHILS # (AUTO) 6.9 K/uL (1.8-7.7); NEUTROPHILS % (AUTO) 70.8 % (40.0-77.0); PLATELET COUNT (AUTO) 297 K/uL (130-400); RED BLOOD CELL COUNT(AUTO) 4.39 MIL/uL (4.50-6.20); RED CELL DISTRIBUTION WIDTH 13.2 % (11.0-15.5); WHITE BLOOD COUNT (AUTO) 9.8 K/uL (4.8-10.8)
[2024-04-25 05:40] LABS: ALBUMIN 2.8 g/dL (3.5-5.0); BILIRUBIN,TOTAL 1.1 mg/dL (0.2-1.0); CREATININE 1.3 mg/dL (0.5-1.3); POTASSIUM 4.5 mmol/L (3.5-5.1); TOTAL PROTEIN, SERUM 7.1 g/dL (6.0-8.3)
[2024-04-25 07:00] VITALS: BP 119/72; PULSE 64; RESP 18; TEMP 98.8
[2024-04-25 07:53] VITALS: O2SAT 96
--- NOTE | 2024-04-25 08:20 | PN ---
[facility] CARDIOLOGY PROGRESS NOTE Date Patient Seen: Apr 25, 2024 Time of Visit: 08:17 Problem List: Anterolateral STEMI New onset AF with RVR Cardiomyopathy Interval History: POD 1 CORDELL guided DCCV Physical Examination: GENERAL: [No acute distress.] LUNGS: [Clear breath sounds bilaterally. No wheezes, or rhonchi.] HEART: [regular rate and rhythm. Normal S1 and S2 without murmurs, gallop or rub.] VASC: [Peripheral pulses +2 bilaterally. Right radial artery access site nontender, no hematoma 2+ pulse.] EXT: [No clubbing, cyanosis or edema.] SKIN: [warm, dry.] NEURO: [Awake, alert, and oriented x3. No focal sensory or strength deficits noted.] Laboratory: [ ] Hematology Labs: Test 04/25/24 04:32 Range/Units White Blood Count 9.8 4.8-10.8 K/uL Red Blood Count 4.39 L 4.50-6.20 MIL/uL Hemoglobin 14.4 14.0-18.0 g/dL Hematocrit 41.7 L 42-54 % Mean Corpuscular Volume 95.0 79-99 fL Mean Corpuscular Hemoglobin 32.8 27.0-33.0 pg Mean Corpuscular Hemoglobin Concent 34.5 32.0-36.0 g/dL Red Cell Distribution Width 13.2 11.0-15.5 % Platelet Count 297 130-400 K/uL Mean Platelet Volume 10.2 7.5-10.5 fL Immature Granulocyte % (Auto) 0.7 0-1 % Neutrophils (%) (Auto) 70.8 40.0-77.0 % Lymphocytes (%) (Auto) 12.1 L 21.0-51.0 % Monocytes (%) (Auto) 14.5 H 3.0-13.0 % Eosinophils (%) (Auto) 1.6 0.0-8.0 % Basophils (%) (Auto) 0.3 0.0-5.0 % Neutrophils # (Auto) 6.9 1.8-7.7 K/uL Lymphocytes # (Auto) 1.2 1.0-4.8 K/uL Monocytes # (Auto) 1.4 H 0.1-1.0 K/uL Eosinophils # (Auto) 0.16 0.00-0.70 K/uL Basophils # (Auto) 0.03 0.00-0.20 K/uL Absolute Immature Granulocyte (auto 0.07 0-1 K/uL Nucleated Red Blood Cells 0.0 0.0-0.19 % Chemistry Labs: Test 04/25/24 05:20 04/25/24 04:32 04/24/24 15:39 Range/Units Whole Blood Glucose 137 H 70-110 MG/DL Sodium Level 138 136-145 mmol/L Potassium Level 4.5 3.5-5.1 mmol/L Chloride Level 104 101-111 mmol/L Carbon Dioxide Level 22 21-32 mmol/L Blood Urea Nitrogen 24 H 7-18 mg/dL Creatinine 1.3 0.5-1.3 mg/dL Glomerular Filtration Rate Calc 62 >90 mL/min Random Glucose 128 H 70-105 mg/dL Total Calcium 8.8 8.5-10.1 mg/dL Magnesium Level 2.00 1.80-2.40 mg/dL Total Bilirubin 1.1 H 0.2-1.0 mg/dL Aspartate Amino Transf (AST/SGOT) 39 H 10-37 U/L Alanine Aminotransferase (ALT/SGPT) 50 12-78 U/L Alkaline Phosphatase 77 50-136 U/L Total Protein 7.1 6.0-8.3 g/dL Albumin 2.8 L 3.5-5.0 g/dL Triglycerides Level 86 30-200 mg/dL Cholesterol Level 153 <200 mg/dL LDL Cholesterol 108 H 0-99 mg/dL HDL Cholesterol 39 29-71 mg/dL Vitamin B12 Level 590 193-986 pg/mL Bedside Glucose Comment Notified Nurse Impression and Plan: -ACS-STEMI s/p LHC/coronary angiogram done on 04/20/2024 which identified 100% thrombotic occlusion to proximal LAD s/p successful PCI with ANNITA placement (MOF 4.5x18 mm) -Acute LV systolic dysfunction (LVEF: 35-40% by echo done 04/21/2023) -New onset atrial fibrillation with RVR -HTN -HLP -DM2 -Elevated LFTs -Obesity - LDL 108 Plan: 1. ACS-STEMI s/p LHC/coronary angiogram 04/20/2024 with 100% thrombotic occlusion (culprit lesion) to proximal LAD s/p successful PCI with ANNITA placement (MOF 4.5x18 mm) -LFTs have improved. Resumed statin. Goal LDL <70. -The patient will remain on triple therapy (aspirin, ticagrelor, Eliquis) for 1 month, then aspirin should be discontinued. He should be on H2B or PPI during this time. 2. Acute LV systolic dysfunction (LVEF: 35-40% by echo done 04/21/2023) -GDMT: metoprolol succinate 100 mg daily, Entresto 24/26 mg BID, and spironolactone 12.5 mg daily, Jardiance 25 mg daily. -After maintained on maximally tolerated GDMT, will plan for repeat echo 3 months to eval LV systolic recovery. 3. New onset atrial fibrillation with RVR - metoprolol succinate 100 mg daily. -CAHDS2 VASc score: 4 points. Eliquis 5 mg BID. -S/P CORDELL DCCV on 04/24 OK for d/c from cardiac standpoint with follow up next week. HOMA CALIX DO Apr 25, 2024 08:20
[2024-04-25] MEDS ORDERED: MIDAZOLAM HCL 1 MG/ML 2ML VIAL IVP ONE (09:00)
[2024-04-25 11:00] VITALS: BP 109/65; PULSE 65; RESP 20; TEMP 98.7
[2024-04-25] MEDS ORDERED: ATOR40TA69 PO (14:10)
[2024-04-25] MEDS ORDERED: Nitroglycerin 0.4MG Sl Tab SL (14:10)
[2024-04-25] MEDS ORDERED: ASPI-1005 PO (14:10)
[2024-04-25] MEDS ORDERED: APIX5TAB PO (14:10)
[2024-04-25] MEDS ORDERED: TICA90TA PO (14:10)
[2024-04-25] MEDS ORDERED: SPIR25TA6 PO (14:10)
[2024-04-25] MEDS ORDERED: METO50TA9 PO (14:10)
[2024-04-25] MEDS ORDERED: SACU1TAB PO (14:10)
[2024-04-25] MEDS ORDERED: PANT40TA PO (14:10)
[2024-04-25] MEDS ORDERED: EMPA25TA PO (14:10)
--- NOTE | 2024-04-25 15:20 | NUR ---
PATIENT ALERT AND ORIENTED X4, WITH FAMILY AT BEDSIDE. PRESCRIPTIONS GIVEN TO PATIENT, BRILINTA AND ELIQUIS DISCOUNT CARDS GIVEN. ALL MEDICATIONS EXPLAINED TO PATIENT AND FAMILY IN DETAILS, INCLUDING SIDE EFFECTS. PATIENT EDUCATED THAT IS VERY IMPORTANT TO TAKE ALL MEDICATIONS PRESCRIBED, AND THAT HE IS PENDING TO TAKE TONIGHT DOSE FOR MEDICATIONS THAT ARE SCHEDULED BID AND THAT HE NEEDS TO REFILL PRESCRIPTIONS TODAY. PATIENT INSTRUCTED THAT IF THERE ARE MEDICATIONS THAT HE CAN NOT REFILL HE SHOULD VISIT [facility] EARLY AM FOR POSSIBLE AID WITH MEDICATIONS (BLOOD THINNERS MEDICATION CARDS GIVEN - ELIQUIS AND BRILINTA). IVX2 REMOVED WITHOUT COMPLICATIONS. PATIENT EDUCATED TO FOLLOW UP WITH DR. CALIX PER SCHEDULED KARLO. ALL QUESTIONS ANSWERED, PATIENT AND FAMILY VERBALIZED COMPLETE UNDERSTANDING. PATIENT GATHERED ALL BELONGINGS AND TOOK WITH HIM AT DISCHARGE.
--- NOTE | 2024-04-25 15:56 | DS ---
Discharge Summary Hospital Course Summary: [ Patient is 64 years old male with a past medical history of hypertension, hyperlipidemia, who came to emergency department with substernal chest pain In emergency department patient was found to have anterior lateral ST-elevation with underlying AFib with rapid ventricular response code STEMI was called. Patient was taken to the labor custodian with and stent was placed to proximal LAD. WBC 8.9 hemoglobin 17.1 hematocrit 49.3 platelets 315. Sodium 139 potassium 3.9 chloride 101 CO2 29 BUN 21 creatinine 1.7 GFR 45 random glucose 159 calcium 9.3 CK 153 troponin positive x1 BNP 61. Patient is pending 2D echo and chest x- ray. Patient will be admitted under hospitalist care. ICU, tar kettle runner and counter cutter consulted pending further evaluation During the course of the hospitalization under conscious sedation, the patient underwent transesophageal echocardiogram with direct current cardioversion x1 at 120 joules. Tolerated the procedure well. Today the patient is alert oriented x3, hemodynamically stable, cleared by Cardiology to be discharged home. Box Finisher(s): Cardiology Procedure(s): Procedures: Conscious sedation Transesophageal echocardiogram Direct current cardioversion x1 at 120 joules Assessment/Plan: Final diagnosis Acute STEMI, code STEMI called in ER POA S/p left heart catheterization 04/20/2024 placement on stent proximal LAD with POA S/p C s/p symptomatic severe hypotension requiring cardiac drip POA Emergency hypertension, prior LHC POA New onset of AFib RVR POA status post direct current cardioversion x1 and 120 joules 04/24/2024 Acute on chronic kidney disease POA Hypertroponinemia POA Hyperlipidemia POA Discharge Instructions: Patient to follow up with counter cutter as an outpatient. Patient instructed to be compliant with medications. Explained to the patient that per counter cutter, patient will remain on triple therapy (aspirin, ticagrelor, Eliquis) for 1 month, then aspirin should be discontinued. Prescription for PPI given as well. Patient agreed with plan and understood all the information provided. Home Medications: Active Scripts Pantoprazole Sodium (Protonix) 40 Mg Tablet., 40 MG PO DAILY for 30 Days, #30 TAB 1 Refill Prov:FRED ALSTON MD 04/25/24 Ticagrelor (Brilinta) 90 Mg Tablet, 90 MG PO BID for 30 Days, #60 TAB 1 Refill Prov:FRED ALSTON MD 04/25/24 Spironolactone (Spironolactone) 25 Mg Tablet, 12.5 MG PO DAILY for 30 Days, #30 TAB 1 Refill Prov:FRED ALSTON MD 04/25/24 Sacubitril/Valsartan (Entresto 24 mg-26 mg Tablet) 24 Mg-26 Mg Tablet, 1 EACH PO BID for 30 Days, #30 TAB 1 Refill Prov:FRED ALSTON MD 04/25/24 [Nitroglycerin 0.4MG Sl Tab] 0.4 MG TAB.SUBL No Conflict Check, 0.4 MG SL PROTOCOL PRN for CHEST PAIN for 30 Days, #30 1 Refill Prov:FRED ALSTON MD 04/25/24 Metoprolol Succinate (Toprol Xl) 50 Mg Tab.er.24h, 100 MG PO DAILY for 30 Days, #30 TAB 1 Refill Prov:FRED ALSTON MD 04/25/24 Empagliflozin (Jardiance) 25 Mg Tablet, 25 MG PO DAILY for 30 Days, #30 TAB 1 Refill Prov:FRED ALSTON MD 04/25/24 Atorvastatin Calcium (LIPITOR) 40 Mg Tablet, 40 MG PO HS for 30 Days, #30 TAB 1 Refill Prov:FRED ALSTON MD 04/25/24 Aspirin (ASPIRIN 81MG CHEW TAB) 81 Mg Tab.chew, 81 MG PO DAILY for 30 Days, #30 TAB.CHEW 0 Refills STOP TAKING ASPIRIN AFTER 1 MONTH Prov:FRED ALSTON MD 04/25/24 Apixaban (Eliquis) 5 Mg Tablet, 5 MG PO BID for 30 Days, #60 TAB 1 Refill Prov:FRED ALSTON MD 04/25/24 Reported Medications Aspirin (Aspirin) 81 Mg Tab.chew, 81 MG PO DAILY, TAB.CHEW 04/20/24 Discontinued Reported Medications [Rovustatin] No Conflict Check, 10 MG PO 04/20/24 Lisinopril (Lisinopril) 40 Mg Tablet, 1 TAB PO DAILY for 30 Days, #30 TAB 0 Ref ills 04/20/24 New Medications: Apixaban (Eliquis) 5 Mg Tablet 5 MG PO BID for 30 Days, #60 TAB 1 Refill Aspirin (Aspirin 81MG Chew Tab) 81 Mg Tab.chew 81 MG PO DAILY for 30 Days, #30 TAB.CHEW 0 Refills STOP TAKING ASPIRIN AFTER 1 MONTH Atorvastatin Calcium (Lipitor) 40 Mg Tablet 40 MG PO HS for 30 Days, #30 TAB 1 Refill Empagliflozin (Jardiance) 25 Mg Tablet 25 MG PO DAILY for 30 Days, #30 TAB 1 Refill Metoprolol Succinate (Toprol Xl) 50 Mg Tab.er.24h 100 MG PO DAILY for 30 Days, #30 TAB 1 Refill [Nitroglycerin 0.4MG Sl Tab] () 0.4 MG TAB.SUBL 0.4 MG SL PROTOCOL PRN for CHEST PAIN for 30 Days, #30 1 Refill Pantoprazole Sodium (Protonix) 40 Mg Tablet.dr 40 MG PO DAILY for 30 Days, #30 TAB 1 Refill Sacubitril/Valsartan (Entresto 24 mg-26 mg Tablet) 24 Mg-26 Mg Tablet 1 EACH PO BID for 30 Days, #30 TAB 1 Refill Spironolactone (Spironolactone) 25 Mg Tablet 12.5 MG PO DAILY for 30 Days, #30 TAB 1 Refill Ticagrelor (Brilinta) 90 Mg Tablet 90 MG PO BID for 30 Days, #60 TAB 1 Refill Continued Medications: Aspirin (Aspirin) 81 Mg Tab.chew 81 MG PO DAILY, TAB.CHEW Discontinued Medications: Lisinopril (Lisinopril) 40 Mg Tablet 1 TAB PO DAILY for 30 Days, #30 TAB 0 Refills [Rovustatin] () 10 MG PO FRED ALSTON MD Apr 25, 2024 15:56
[2024-04-25] MEDS ORDERED: atorVAStatin 40 MG TABLET PO SCH (21:00)
--- NOTE | 2024-04-26 06:49 | HMCSR ---
APPROVED REPORT EXAM: Transesophageal echocardiogram with color flow Doppler. INDICATION ICD: Atrial fibrillation PROCEDURE After obtaining informed consent, patient underwent transesophageal echo in the second floor. 15 mL 2% Viscous Lidocaine was given as a topical anesthetic prior to the administration of the consc ious sedation. Type of Sedation: Please refer to medication administration record. Sedation was administered by Please refer to medication administration record.. Sedation was achieved with Please refer to medication administration record. intravenously. Transesophageal probe was inserted and advanced into esophagus without difficulty by Brody Pina MD . Prior to cardioversion, of Please refer to medication administration record. was administered. Synchronized Cardioversion attempted: Successful Synchronized Cardioversion acheived with 120 Joules after 1 attempt(s). Rhythm following Synchronized Cardioversion: Sinus rhythm Throughout the procedure, the blood pressure, pulse oximetry, cardiac rhythm, and rate were monitored . Left Ventricle Left ventricular cavity size is normal. Cannot assess regional wall motion abnormalities. Moderate co ncentric left ventricular hypertrophy. LVEF is estimated at 40%. Right Ventricle The right ventricle is normal size. The right ventricular systolic function is normal. Atria Spontaneous contrast noted in left atrium. The left atrium is mildly dilated. No left atrial appendag e thrombus noted. The right atrium is severely dilated. Aortic Valve The aortic valve is trileaflet normal in structure and function. No aortic regurgitation is present. There is no aortic valvular stenosis. Mitral Valve The mitral valve is mildly thickene and open well. There is trace mitral valve regurgitation noted. T here is no mitral valve stenosis. Tricuspid Valve The tricuspid valve is normal in structure and function. There is trivial tricuspid valve regurgitati on noted. Pulmonic Valve Pulmonic valve is not well visualized. Great Vessels The aortic root is normal in size. The ascending aorta is normal in size. Descending aorta is normal in size. Pericardium No pericardial effusion. Conclusion Spontaneous contrast noted in left atrium. The left atrium is mildly dilated. No left atrial appendage thrombus noted. The ascending aorta is normal in size. Descending aorta is normal in size. The aortic root is normal in size.
--- NOTE | 2024-04-26 08:59 | NUR ---
patient d/c before RD could reassess Addendum: 04/26/24 at [address] Amended: Links added.
== END 2024-04-25 15:45 | disposition home or self-care (01) | DRG 322 ==
LOC: EDH 09:04 → EDHIP 09:05 → 2CH 11:47 → 2DH 04-23 14:22
PROVIDERS: ADMIT Internal Medicine; ATTEND Internal Medicine
PROC: 027034Z Dilation of Coronary Artery, One Artery with Drug-eluting Intraluminal Device, Percutaneous Approach (ICD-10-PCS; principal; 2024-04-20)
PROC: 4A023N7 Measurement of Cardiac Sampling and Pressure, Left Heart, Percutaneous Approach (ICD-10-PCS; 2024-04-20)
PROC: B2111ZZ Fluoroscopy of Multiple Coronary Arteries using Low Osmolar Contrast (ICD-10-PCS; 2024-04-20)
PROC: 5A2204Z Restoration of Cardiac Rhythm, Single (ICD-10-PCS; 2024-04-24)
DX: I21.09 ST elevation (STEMI) myocardial infarction involving other coronary artery of anterior wall (principal); I42.8 Other cardiomyopathies; N17.9 Acute kidney failure, unspecified; I25.10 Atherosclerotic heart disease of native coronary artery without angina pectoris; I48.91 Unspecified atrial fibrillation; N18.9 Chronic kidney disease, unspecified; I12.9 Hypertensive chronic kidney disease with stage 1 through stage 4 chronic kidney disease, or unspecified chronic kidney disease; E11.22 Type 2 diabetes mellitus with diabetic chronic kidney disease; E66.9 Obesity, unspecified; E78.5 Hyperlipidemia, unspecified; F41.9 Anxiety disorder, unspecified; I25.2 Old myocardial infarction; Z68.29 Body mass index [BMI] 29.0-29.9, adult; Z95.5 Presence of coronary angioplasty implant and graft; Z79.899 Other long term (current) drug therapy
CPT/HCPCS: 36415; 71045; 78582; 80048; 80053; 80061; 80076; 82140; 82306; 82550; 82607; 82948; 83036; 83605; 83735; 83880; 84145; 84484; 85025; 85027; 85347; 85378; 85730; 87804; 92960; 92978; 93005; 93306; 93312; 93325; 93356; 93458; 94664; 99156; 99157; A9540; A9558; C1769; C1887; C9607; G0378; J1327; J1644; J1815; J2250; J2405; J3010; J3475; J3490; Q9967; C1725; C1753; C1874; C1894; Q9965